=== PATIENT | female | born 1950 | race Caucasian/White ===

== ENCOUNTER 2021-01-15 11:25 | Outpatient (CLI) | payer MEDICARE, SELFPAY | END 2021-01-15 11:26 | disposition home or self-care (01) | PROVIDERS: Visit Provider Otolaryngology | DX: H93.13 Tinnitus, bilateral (principal); H91.93 Unspecified hearing loss, bilateral | CPT/HCPCS: 92557; 92567 ==

== ENCOUNTER 2021-05-27 17:46 | Outpatient (CLI) | payer MEDICARE, SELFPAY ==
--- NOTE | ~2021-05-27 | MM_ITS ---
EXAMINATION: MM screening sydni BI w [place] HISTORY: Screening mammogram TECHNIQUE: Craniocaudal and mediolateral oblique 3-D tomosynthesis images were obtained and synthetic 2-D images were generated. CAD analysis was submitted and interpreted. COMPARISON: No prior mammogram is available for comparison at this institution. BREAST PARENCHYMAL COMPOSITION: The breasts are heterogeneously dense, which may obscure small masses . FINDINGS: RIGHT BREAST: There is focal asymmetry in the posterior third of the upper outer quadrant of the [address]. In addition, there is an asymmetry in the middle/posterior third of inner breast 10 cm from the n ipple on the craniocaudal view. LEFT BREAST: An asymmetry is present in the middle third of inner breast 6 cm from the nipple on the craniocaudal view. IMPRESSION: 1. Bilateral breast findings as described above which may represent the patient's baseline however no comparison is currently available. 2. Comparison with prior mammograms is necessary. BI-RADS Category 0: Incomplete: Needs comparison with prior mammograms. Reviewed, dictated and finalized at location A. IMPRESSION: 1. Bilateral breast findings as described above which may represent the patient 's baseline however no comparison is currently available. 2. Comparison with prior mammograms is necessary. BI-RADS Category 0: Incomplete: Needs comparison with prior mammograms.
== END 2021-05-27 17:47 | disposition home or self-care (01) ==
DX: Z12.31 Encounter for screening mammogram for malignant neoplasm of breast (principal); R92.8 Other abnormal and inconclusive findings on diagnostic imaging of breast
CPT/HCPCS: 77063; 77067

== ENCOUNTER 2021-07-04 11:46 | Outpatient (CLI) | payer MEDICARE, SELFPAY ==
--- NOTE | ~2021-07-04 | MM_ITS ---
EXAMINATION: MM diagnostic sydni LT w [place] HISTORY: Left breast asymmetry on screening mammogram TECHNIQUE: Additional 3-D tomosynthesis images of the left breast were performed and synthetic 2-D im ages were generated. CAD analysis was submitted and interpreted. COMPARISON: 05/27/2021, 10/24/2014, 07/16/2011 BREAST PARENCHYMAL COMPOSITION: The breasts are heterogeneously dense, which may obscure small masses . FINDINGS: There is a return to baseline fibroglandular appearance with spot compression of the left b reast in the area questioned on screening mammogram. IMPRESSION: 1. No mammographic evidence of malignancy. 2. Recommend routine screening mammography in one year. BI-RADS Category 1: Negative Reviewed, dictated and finalized at location A.
== END 2021-07-04 11:47 | disposition home or self-care (01) ==
DX: R92.8 Other abnormal and inconclusive findings on diagnostic imaging of breast (principal)
CPT/HCPCS: 77061; 77065; G0279

== ENCOUNTER 2022-02-07 14:21 | Emergency (ER) | payer MEDICARE, SELFPAY ==
--- NOTE | ~2022-02-07 | XR_ITS ---
EXAMINATION: XR knee LT min 4V EXAM DATE: 02/07/2022 15:00 INDICATION: FALL onto hardwood floor this P.M.;pain medial Lt knee. TECHNIQUE: Left ankle frontal, lateral and oblique projections obtained and reviewed. There is no pr ior study for comparison. FINDINGS: The left ankle mortise appears intact. There is mild patellofemoral and medial tibial fem oral compartment primary osteoarthritis. Trace joint effusion. There are no acute fractures identifi ed. IMPRESSION: 1. No acute findings. 2. Mild osteoarthritis. 3. Trace joint effusion. Reviewed, dictated and finalized at location G.
--- NOTE | ~2022-02-07 | XR_ITS ---
EXAMINATION: XR ankle LT min 3V EXAM DATE: 02/07/2022 15:00 INDICATION: Fall onto hardwood floor this P.M.; lat Lt ankle pain. TECHNIQUE: Left ankle frontal, lateral and oblique projections obtained and reviewed. There is no pr ior study for comparison. FINDINGS: The left ankle mortise appears intact. Small irregularity to the tip of the medial malleol us, age indeterminate avulsion injury (3 reports pain is lateral, not medial). There is a left ankle joint effusion. Small calcaneal spur inferiorly. No radiopaque foreign bodies identified. IMPRESSION: Age-indeterminate tiny medial malleolar avulsion fracture. Joint effusion. Reviewed, dictated and finalized at location G. IMPRESSION: Age-indeterminate tiny medial malleolar avulsion fracture. Joint ef fusion.
[2022-02-07 14:27] VITALS: BP 121/85; PULSE 105; RESP 16; TEMP 37; O2SAT 98
--- NOTE | 2022-02-07 14:46 | ED.LOWEXIN ---
HPI - Extremity Injury (Lower) General Chief Complaint: Extremity Injury, Lower Stated Complaint: L KNEE/ANKLE INJURY Time Seen by Provider: 02/07/22 14:35 Source: patient, family, RN notes reviewed and old records reviewed Mode of arrival: ambulatory Limitations: no limitations History of Present Illness HPI Narrative: 72-year-old female who presents to [facility] accompanied with her with complaints of pain to her left lateral ankle, point tenderness to anterior medial left ankle, and her left medial knee after slipping and falling on new hardwood floors in their home about an hour prior to arrival. Patient states that she had tennis shoes on and she slipped and fell hitting the medial side of her left knee and both lateral and medial aspect of left ankle, no redness or bruising noted. Patient voices previous fracture of right ankle in 2018 concerned due to history of osteopenia and history of ulcer and can's take Ibuprofen. MD complaint: knee injury (left), ankle injury (left) and fall Onset (ago): hour(s) Injury: Left: knee (medial knee) and ankle (lateral aspect) Place: home Exacerbating factors: weight bearing Context: fall Related Data Home Medications Medication Instructions Recorded Confirmed alprazolam 0.25 mg tablet 0.25 mg PO DAILY 01/13/21 02/07/22 amitriptyline 75 mg tablet 75 mg PO QHS 01/13/21 02/07/22 atorvastatin 40 mg tablet 40 mg PO DAILY 01/13/21 02/07/22 cholecalciferol (vitamin D3) 50 50 mcg PO DAILY 01/13/21 02/07/22 mcg (2,000 unit) capsule fenofibrate micronized 134 mg 134 mg PO DAILY 01/13/21 02/07/22 capsule lisinopril 20 mg tablet 20 mg PO DAILY 01/13/21 02/07/22 omeprazole 20 mg capsule,delayed 20 mg PO DAILY 01/13/21 02/07/22 release ramelteon 8 mg tablet 8 mg PO QHS 01/13/21 02/07/22 venlafaxine 37.5 mg 37.5 mg PO DAILY 01/13/21 02/07/22 capsule,extended release 24 hr vitamins A,C,M-cvwd-qdecfm 14,320 1 cap PO BID 01/13/21 02/07/22 unit-226 mg-200 unit capsule Allergies Allergy/AdvReac Type Severity Reaction Status Date / Time No Known Allergies Allergy Verified 02/07/22 14:28 Review of Systems Review of Systems: CONSTITUTIONAL: Denies fever, chills, or sweats. EYES: Denies visual changes, redness, or discharge. ENT: Denies rhinorrhea, congestion, sore throat, or otalgia. CARDIOVASCULAR: Denies chest pain, palpitations, or edema. RESPIRATORY: Denies cough or dyspnea. GASTROINTESTINAL: Denies abdominal pain, nausea, vomiting, or diarrhea. GENITOURINARY: Denies dysuria or hematuria. SKIN: Denies rash or itching. MUSCULOSKELETAL: lower left back pain,positive for left medial knee joint pain and left lateral ankle joint pain and point tenderness to anterior medial left ankle or myalgia. NEUROLOGIC: Denies headache, numbness, or weakness. PSYCHIATRIC:positive for history of anxiety or depression. All systems reviewed & are unremarkable except as noted in HPI and below PMFSH Past Medical History Medical History (Updated 02/07/22 @ 18:24 by Tomeka Mendoza NP) Closed right ankle fracture Elevated cholesterol GERD (gastroesophageal reflux disease) Hypertension Osteopenia Pneumonia Ulcer Surgical History Surgical History (Updated 02/07/22 @ 18:21 by Tomeka Mendoza NP) H/O breast biopsy History of hysterectomy History of removal of both ovaries Family History Family History Father Hypertension Mother Diabetes mellitus Hypertension Heart disease Social History Social History (Updated 02/07/22 @ 18:24 by Tomeka Mendoza NP) Smoking status: Never smoker Alcohol intake: current Alcohol use details: social Substance use: never Living arrangements: with family Gender identity (if verbalized by the patient): Female Comments At time of signature, agree with nursing past medical, surgical, social and family history. There is no relevant family history pertinent to the presenti
== END 2022-02-07 15:32 | disposition home or self-care (01) ==
PROVIDERS: Emergency Provider Registered Nurse
DX: S82.52XA Displaced fracture of medial malleolus of left tibia, initial encounter for closed fracture (principal); M25.462 Effusion, left knee; M25.472 Effusion, left ankle; W01.0XXA Fall on same level from slipping, tripping and stumbling without subsequent striking against object, initial encounter; E78.00 Pure hypercholesterolemia, unspecified; K21.9 Gastro-esophageal reflux disease without esophagitis; I10 Essential (primary) hypertension; M85.80 Other specified disorders of bone density and structure, unspecified site
CPT/HCPCS: 73564; 73610; 99214; G0463

== ENCOUNTER 2022-07-17 12:33 | Emergency (ER) | payer MEDICARE, SELFPAY ==
[2022-07-17 12:39] VITALS: BP 100/77; PULSE 102; RESP 16; TEMP 36.6; O2SAT 98
--- NOTE | 2022-07-17 13:03 | ED.HA ---
HPI - Headache General Chief Complaint: Headache Stated Complaint: DIZZY/HEADACHE Time Seen by Provider: 07/17/22 13:03 Source: patient and RN notes reviewed Mode of arrival: ambulatory Limitations: no limitations History of Present Illness HPI Narrative: 72-year-old female presented for complaint of episode of headache and dizziness about 2 hours prior to arrival this morning. She endorses working outside, she bent over and when she stood up she felt dizzy with flashing floaters in her eyes, and became diaphoretic. She endorses the head pain at that time was 7 out of 10. She took her blood pressure at home, lowest 93/71. Since then the pain has reduced to 3 out of 10. She continues to feel mild nausea, dry mouth, and belching. Also feels weak and tired at this time. She takes daily lisinopril and statin for history of HTN, HLD. Currently denies chest pain, palpitations, shortness of breath, vomiting, numbness, tingling, weakness of upper extremities. Related Data Home Medications Medication Instructions Recorded Confirmed alprazolam 0.25 mg tablet 0.25 mg PO DAILY 01/13/21 02/07/22 amitriptyline 75 mg tablet 75 mg PO QHS 01/13/21 02/07/22 atorvastatin 40 mg tablet 40 mg PO DAILY 01/13/21 02/07/22 cholecalciferol (vitamin D3) 50 50 mcg PO DAILY 01/13/21 02/07/22 mcg (2,000 unit) capsule fenofibrate micronized 134 mg 134 mg PO DAILY 01/13/21 02/07/22 capsule lisinopril 20 mg tablet 20 mg PO DAILY 01/13/21 02/07/22 omeprazole 20 mg capsule,delayed 20 mg PO DAILY 01/13/21 02/07/22 release ramelteon 8 mg tablet 8 mg PO QHS 01/13/21 02/07/22 vitamins A,C,W-cxmd-nqiprp 14,320 1 cap PO BID 01/13/21 02/07/22 unit-226 mg-200 unit capsule (PreserVision AREDS) Allergies Allergy/AdvReac Type Severity Reaction Status Date / Time No Known Allergies Allergy Verified 02/07/22 14:28 Review of Systems Review of Systems: CONSTITUTIONAL: Denies body aches, fever, chills, or sweats. EYES: Reports visual changes, denies redness, or discharge. ENT: Denies rhinorrhea, congestion, sore throat, or otalgia. CARDIOVASCULAR: Denies chest pain, palpitations, or edema. RESPIRATORY: Denies cough or dyspnea. GASTROINTESTINAL: Denies abdominal pain, vomiting, or diarrhea. MUSCULOSKELETAL: Denies back pain, joint pain, or myalgia. NEUROLOGIC: Endorses headache, denies numbness, tingling, or weakness All systems reviewed & are unremarkable except as noted in HPI and below PMFSH Past Medical History Medical History Closed right ankle fracture Elevated cholesterol GERD (gastroesophageal reflux disease) Hypertension Osteopenia Pneumonia Ulcer Surgical History Surgical History H/O breast biopsy History of hysterectomy History of removal of both ovaries Family History Family History Father Hypertension Mother Diabetes mellitus Hypertension Heart disease Social History Social History Smoking status: Never smoker Alcohol intake: current Alcohol use details: social Substance use: never Gender identity (if verbalized by the patient): Female Comments At time of signature, I have reviewed and agree with nursing past medical, surgical, social and family history unless otherwise noted. Please see nursing chart for further information. There is no relevant family history pertinent to the presenting complaint Exam Narrative: GENERAL: Well-appearing HEAD: Normocephalic, atraumatic. EYES: PERRLA, EOMI. ENT: Mucous membranes pink and moist. No rhinorrhea. NECK: Normal AROM. Supple. No lymphadenopathy. CHEST: Clear to auscultation. HEART: Regular rate and rhythm. No murmur appreciated. Normal peripheral pulses. ABDOMEN: Soft, nontender, nondistended, normal active bowel sounds.
--- NOTE | 2022-07-17 13:22 | ECG_ITS ---
Measurements Intervals [place] Rate: 101 P: 42 FL: 210 QRS: -43 QRSD: 102 T: 20 QT: 361 QTc: 470 Interpretive Statements SINUS TACHYCARDIA WITH FIRST DEGREE AV BLOCK PATTERN CONSISTENT WITH PULMONARY DISEASE POOR R WAVE PROGRESSION, ANTERIOR LEADS BORDERLINE T WAVE ABNORMALITY- ANT/INF LEADS ABNORMAL ECG NO PREVIOUS ECG AVAILABLE FOR COMPARISON Electronically Signed On 07-24-2022 12:32:26 CDT by Edgar Lopez D.O.
== END 2022-07-17 13:49 | disposition short-term general hospital (02) ==
PROVIDERS: Emergency Provider Nurse Practitioner Family
DX: R42 Dizziness and giddiness (principal); E78.00 Pure hypercholesterolemia, unspecified; K21.9 Gastro-esophageal reflux disease without esophagitis; I10 Essential (primary) hypertension; M85.80 Other specified disorders of bone density and structure, unspecified site; Z90.722 Acquired absence of ovaries, bilateral
CPT/HCPCS: 93005; 99212; G0463

== ENCOUNTER 2022-12-11 11:31 | Emergency (ER) | payer MEDICARE, SELFPAY ==
[2022-12-11 11:44] VITALS: BP 97/73; PULSE 102
[2022-12-11 11:49] VITALS: BP 90/77; PULSE 102; RESP 16; TEMP 36.3; O2SAT 100
[2022-12-11 11:51] VITALS: BP 89/72; PULSE 102
[2022-12-11 11:52] VITALS: BP 86/57; PULSE 112; RESP 16; TEMP 36.3; O2SAT 100
--- NOTE | 2022-12-11 12:00 | ED.DIZZY ---
HPI - Dizziness General Chief Complaint: Dizziness Stated Complaint: low bp,dizzy Time Seen by Provider: 12/11/22 11:43 Source: patient and family () Mode of arrival: ambulatory Limitations: no limitations History of Present Illness HPI Narrative: Patient presents today complaining of dizziness and lightheadedness that began when she was standing in the bathroom this morning. She laid down in her bedroom, ate 2 small cookies to see if this would help with her symptoms. When her symptoms resolved approximately 10 minutes later she got up and her symptoms returned. She checked her blood pressure at and it ranged from 88-90 systolic to upper 60s diastolic. Subsequently any time she was standing she was dizzy and lightheaded. She did not have any syncopal episodes. She currently has a headache. Denies shortness of breath, chest pain, vision changes, abdominal pain, palpitations or racing heart, numbness or tingling in the extremities, weakness. Patient has hypertension for which he takes lisinopril. Her last dose was last night. States she is prediabetic for which she takes Mounjaro injections. She does not check her blood sugars at home as her doctor told her this was not necessary and she does not have a glucometer. She had a similar episode of dizziness in July and was seen at this Urgent [facility]. She was subsequently transferred to the emergency department and diagnosed with dehydration. Today she called her PCP's office and was told to come to urgent care for further evaluation. Related Data Home Medications Medication Instructions Recorded Confirmed alprazolam 0.25 mg tablet 0.25 mg PO DAILY 01/13/21 12/11/22 amitriptyline 75 mg tablet 75 mg PO QHS 01/13/21 12/11/22 atorvastatin 40 mg tablet 40 mg PO DAILY 01/13/21 12/11/22 cholecalciferol (vitamin D3) 50 50 mcg PO DAILY 01/13/21 12/11/22 mcg (2,000 unit) capsule fenofibrate micronized 134 mg 134 mg PO DAILY 01/13/21 12/11/22 capsule lisinopril 20 mg tablet 20 mg PO DAILY 01/13/21 12/11/22 omeprazole 20 mg capsule,delayed 20 mg PO DAILY 01/13/21 12/11/22 release vitamins A,C,M-jhpk-otosrt 14,320 1 cap PO BID 01/13/21 12/11/22 unit-226 mg-200 unit capsule (PreserVision AREDS) dicyclomine 20 mg tablet 10 mg PO QID 12/11/22 12/11/22 ibandronate 150 mg tablet 15 mg PO DAILY 12/11/22 12/11/22 naloxone 4 mg/actuation nasal spray 4 mg intranasal PRN PRN Drug 12/11/22 12/11/22 Intoxication Symptoms rosuvastatin 40 mg tablet 40 mg PO DAILY 12/11/22 12/11/22 tirzepatide 2.5 mg/0.5 mL 2.5 mg subcut WEEKLY 12/11/22 12/11/22 subcutaneous pen injector (Mounjaro) tirzepatide 5 mg/0.5 mL 5 mg subcut WEEKLY 12/11/22 12/11/22 subcutaneous pen injector (Mounjaro) Allergies Allergy/AdvReac Type Severity Reaction Status Date / Time No Known Allergies Allergy Verified 12/11/22 11:44 Review of Systems Review of Systems: CONSTITUTIONAL: Denies body aches, fever, chills, or sweats. EYES: Denies visual changes, redness, or discharge. ENT: Denies rhinorrhea, congestion, sore throat, or otalgia. CARDIOVASCULAR: Denies chest pain, palpitations, or edema. RESPIRATORY: Denies cough or dyspnea. GASTROINTESTINAL: Denies abdominal pain, nausea, vomiting, or diarrhea. GENITOURINARY: Denies dysuria or hematuria. SKIN: Denies rash, itching, or wounds. MUSCULOSKELETAL: Denies back pain, joint pain, or myalgia. NEUROLOGIC: Denies numbness, tingling, or weakness.+ dizziness, lightheadedness, headache PSYCH: Denies depression or anxiety. [facility] Past Medical History Medical History Closed right ankle fracture Elevated cholesterol GERD (gastroesophageal reflux disease) Hypertension Osteopenia Pneumonia Ulcer Surgical History Surgical History H/O breast biopsy History of hysterectomy History of removal of both ovaries Family History F
[2022-12-11 12:04] LABS: Glucose Point of Care 98 mg/dl (65-105)
--- NOTE | 2022-12-11 12:07 | ECG_ITS ---
Measurements Intervals [place] Rate: 95 P: [place]: 0 QRS: -49 QRSD: 107 T: 20 QT: 393 QTc: 494 Interpretive Statements SINUS RHYTHM BORDERLINE AV CONDUCTION DELAY BASELINE ARTIFACT- II, III, AVF, V1-V3 BORDERLINE ECG COMPARED TO ECG 07/17/2022 13:25:07 SINUS RHYTHM NOW PRESENT Electronically Signed On 12-11-2022 12:54:22 HEARING SPECIALIST by Edgar Lopez D.O.
== END 2022-12-11 12:30 | disposition short-term general hospital (02) ==
PROVIDERS: Emergency Provider Nurse Practitioner
DX: R42 Dizziness and giddiness (principal); I48.92 Unspecified atrial flutter; E78.00 Pure hypercholesterolemia, unspecified; K21.9 Gastro-esophageal reflux disease without esophagitis; I10 Essential (primary) hypertension; M85.80 Other specified disorders of bone density and structure, unspecified site; R73.03 Prediabetes
CPT/HCPCS: 82948; 93005; 99213; G0463

== ENCOUNTER 2022-12-11 13:00 | Emergency (ER) | payer MEDICARE, SELFPAY ==
[2022-12-11] VITALS (7 sets, daily range): BP systolic 91–128; BP diastolic 69–91; PULSE 86–106; RESP 15–20; TEMP 37; O2SAT 98
--- NOTE | ~2022-12-11 | CT_ITS ---
EXAMINATION: CT brain wo con INDICATION: Dizziness and headache COMPARISON: None TECHNIQUE: Standard unenhanced head CT. The dose-length product (DLP) was 605.33 mGy-cm. The mA was a djusted according to patient size. Iterative reconstruction technique was employed. FINDINGS: There is no acute intraparenchymal hemorrhage. No evidence of mass lesion. No evidence of a cute infarction. There is mild periventricular and subcortical hypodensity probably related to small vessel ischemic disease. There is mild prominence of the sulci and ventricles related to cerebral atr ophy. Intracranial calcified cerebral atherosclerosis is noted. There are no extra-axial collections. There is no mass effect or midline shift. The orbits and soft tissues are unremarkable. The visualiz ed sinuses and mastoid air cells are well aerated. IMPRESSION: 1. No acute intracranial abnormality. 2. Age related findings. Reviewed, dictated and finalized at location F. [employer] MACHINE SETTER
--- NOTE | ~2022-12-11 | XR_ITS ---
EXAMINATION: XR chest 1V portable DATE: 12/11/2022 14:06 INDICATION: Dizziness. TECHNIQUE: A single frontal view of the chest was obtained. COMPARISON: Chest 2 views 12/07/2017 FINDINGS: There is chronic mild elevation of right hemidiaphragm. No pneumonia, pleural effusion, or pneumothorax. The heart size is normal. IMPRESSION: 1. No acute cardiopulmonary disease. Reviewed, dictated and finalized at location A. AL RECRUITER
--- NOTE | 2022-12-11 13:04 | ECG_ITS ---
Measurements Intervals [place] Rate: 95 P: 43 SD: 199 QRS: -61 QRSD: 105 T: 39 QT: 359 QTc: 451 Interpretive Statements SINUS RHYTHM BORDERLINE AV CONDUCTION DELAY LEFT ANTERIOR FASCICULAR BLOCK BORDERLINE T WAVE ABNORMALITY- ANT/INF LEADS ABNORMAL ECG COMPARED TO ECG 12/11/2022 12:07:17 LEFT ANTERIOR FASCICULAR BLOCK NOW PRESENT Electronically Signed On 12-11-2022 13:39:02 RELOCATION DIRECTOR by Edgar Lopez D.O.
[2022-12-11 13:15] LABS: Basophils Percent Auto 0.4 % (0.2-1.2); Eosinophils Absolute Auto 0.1 K/mm3 (0-0.3); Eosinophils Percent Auto 1.6 % (0-4.4); Hematocrit 45.7 % (37.0-47.0); Hemoglobin 14.8 g/dL (12.0-15.0); Immature Granulocyte Absolute 0.02 K/mm3 (0.00-0.031); Immature Granulocyte Percent A 0.4 % (0-0.5); Lymphocytes Percent Auto 8.9 % (18.3-44.2); Mean Corpuscular HGB Conc 32.4 g/dl (32-36); Mean Corpuscular Hemoglobin 29.8 pg (26-34); Mean Platelet Volume 9.7 fl (7.4-10.4); Monocytes Absolute Auto 0.6 K/mm3 (0.1-0.6); Monocytes Percent Auto 9.8 % (2.6-8.5); Neutrophils Absolute Auto 4.4 K/mm3 (1.3-6.7); Neutrophils Percent Auto 78.9 % (45.5-73.1); Platelet Count Result 255 k/mm3 (150-375); Red Blood Count 4.97 M/mm3 (4.2-5.4); Red Cell Distribution Width 14.4 % (11.5-14.5); White Blood Count 5.6 K/mm3 (4.5-10.0)
[2022-12-11 13:25] LABS: Alanine Aminotransferase 26 U/L (6-35); Albumin Level 4.2 g/dL (3.5-5.1); Alkaline Phosphatase 44 U/L (38-126); Anion Gap 8 mmol/L (8-16); Aspartate Amino Transferase 34 U/L (14-36); Bilirubin,Total 0.6 mg/dL (0.2-1.3); Blood Urea Nitrogen 18 mg/dL (7-17); Calcium 8.9 mg/dL (8.4-10.2); Carbon Dioxide 25 mmol/L (22-30); Chloride 104 mmol/L (98-107); Estimated CRCL calculation 38 ml/min; Estimated Glomerular Filt Rate 55; Glucose 97 mg/dL (65-110); Sodium 137 mmol/L (137-145)
[2022-12-11 14:35] LABS: Troponin I < 0.012 ng/mL (0.000-0.034)
[2022-12-11] MEDS: MECLIZINE HCL 12.5 MG TABLET PO (15:21)
[2022-12-11] MEDS: SODIUM CHLORIDE 0.9% IV 1,000 ML 999 ML IV CONT (15:26)
[2022-12-11 15:40] LABS: Appearance Urine Clear (Clear); Bilirubin Urine Negative (Negative); Blood Urine Negative (Negative); Color Urine Yellow (Yellow); Glucose Urine UA Negative (Negative); Ketones Urine Negative (Negative); Leukocyte Esterase Ur Negative LEU/UL (Negative); Nitrate Urine Negative (Negative); Protein Urine Negative (Negative); Specific Grav Ur <= 1.005 (1.001-1.035); Urobilinogen Urine 0.2 mg/dL (<2.0)
[2022-12-11 15:47] LABS: Bacteria Urine 1+ /hpf; RBC Urine 0-2 /hpf (0-2); Squamous Epithelial Cell Urine Rare /hpf (Few); WBC Urine 0-3 /hpf
[2022-12-11 16:07] LABS: Add Urine Microscopic? NO
--- NOTE | 2022-12-11 16:21 | ED.GENADULT ---
HPI - General Adult General Chief complaint: Arrhythmia/Palpitations Stated complaint: sent from [facility], [place], headache Time Seen by Provider: 12/11/22 13:45 Source: RN notes reviewed History of Present Illness HPI narrative: Patient presents emergency department from home for dizziness. Patient states she woke up this morning and felt fine she states that she was then getting ready to go to a and was putting on make-up when she began to feel dizzy and lightheaded states at that time her had checked her blood pressure has been noted to be low she states that she laid down for a moment and felt better and got back up and had a second episode she then gone to an urgent care and was referred to the ER for further evaluation she currently denies any dizziness laying in bed she denies any vision changes, denies any numbness or tingling in extremities chest pain shortness of breath abdominal pain or any other symptoms Related Data Home Medications Medication Instructions Recorded Confirmed alprazolam 0.25 mg tablet 0.25 mg PO DAILY 01/13/21 12/11/22 amitriptyline 75 mg tablet 75 mg PO QHS 01/13/21 12/11/22 atorvastatin 40 mg tablet 40 mg PO DAILY 01/13/21 12/11/22 cholecalciferol (vitamin D3) 50 50 mcg PO DAILY 01/13/21 12/11/22 mcg (2,000 unit) capsule fenofibrate micronized 134 mg 134 mg PO DAILY 01/13/21 12/11/22 capsule lisinopril 20 mg tablet 20 mg PO DAILY 01/13/21 12/11/22 omeprazole 20 mg capsule,delayed 20 mg PO DAILY 01/13/21 12/11/22 release vitamins A,C,X-eguo-wbgcqy 14,320 1 cap PO BID 01/13/21 12/11/22 unit-226 mg-200 unit capsule (PreserVision AREDS) dicyclomine 20 mg tablet 10 mg PO QID 12/11/22 12/11/22 ibandronate 150 mg tablet 15 mg PO DAILY 12/11/22 12/11/22 naloxone 4 mg/actuation nasal spray 4 mg intranasal PRN PRN Drug 12/11/22 12/11/22 Intoxication Symptoms rosuvastatin 40 mg tablet 40 mg PO DAILY 12/11/22 12/11/22 tirzepatide 2.5 mg/0.5 mL 2.5 mg subcut WEEKLY 12/11/22 12/11/22 subcutaneous pen injector (Mounjaro) tirzepatide 5 mg/0.5 mL 5 mg subcut WEEKLY 12/11/22 12/11/22 subcutaneous pen injector (Mounjaro) Allergies Allergy/AdvReac Type Severity Reaction Status Date / Time No Known Allergies Allergy Verified 12/11/22 11:44 Review of Systems Review of Systems: Gen.: Denies fevers or chills Eyes: Denies eye pain or visual change ENT: Denies congestion Respiratory: Denies shortness of breath or cough CV: Denies chest pain or palpitations GI: Denies abdominal pain nausea, emesis or diarrhea Musculoskeletal: Denies back pain or muscle pain Neuro: Reports dizziness Skin: Denies rash Except as documented, all other systems reviewed and negative [facility] Past Medical History Medical History Closed right ankle fracture Elevated cholesterol GERD (gastroesophageal reflux disease) Hypertension Osteopenia Pneumonia Ulcer Surgical History Surgical History H/O breast biopsy History of hysterectomy History of removal of both ovaries Family History Family History Father Hypertension Mother Diabetes mellitus Hypertension Heart disease Social History Social History Smoking status: Never smoker Alcohol intake: current Alcohol use details: social Substance use: never Living arrangements: with family Gender identity (if verbalized by the patient): Female Exam Narrative: APPEARANCE: No acute distress, nontoxic, resting in bed HEENT: Normocephalic, atraumatic, OMM, TMs clear bilaterally EYES: PERRL, EOMI RESPIRATORY: No respiratory distress, clear to auscultation bilaterally with no rhonchi wheezing or rales CARDIOVASCULAR: RRR s murmur ABDOMINAL: Soft, nontender, nondistended MUSCULOSKELETAL: Moves
== END 2022-12-11 17:41 | disposition home or self-care (01) ==
PROVIDERS: Emergency Provider Emergency Medicine
DX: R42 Dizziness and giddiness (principal); I95.1 Orthostatic hypotension; K21.9 Gastro-esophageal reflux disease without esophagitis; I10 Essential (primary) hypertension; M85.80 Other specified disorders of bone density and structure, unspecified site; Z87.01 Personal history of pneumonia (recurrent); Z90.710 Acquired absence of both cervix and uterus; Z90.722 Acquired absence of ovaries, bilateral; I44.4 Left anterior fascicular block; R94.31 Abnormal electrocardiogram [ECG] [EKG]
CPT/HCPCS: 36415; 70450; 71045; 80053; 81003; 82948; 84484; 85025; 93005; 96361; 96374; 99284; A9270; J0131; J7030

== ENCOUNTER 2024-04-20 09:53 | Outpatient (CLI) | payer MEDICARE, SELFPAY | END 2024-04-20 09:54 | disposition home or self-care (01) | LOC: ANHAUDASC 09:54 | PROVIDERS: Visit Provider Otolaryngology | DX: H90.3 Sensorineural hearing loss, bilateral (principal) | CPT/HCPCS: 92557; 92567 ==

== ENCOUNTER 2024-05-19 17:59 | Emergency (ER) | payer MEDICARE, SELFPAY ==
--- NOTE | ~2024-05-19 | XR_ITS ---
XR finger 4th LT min 2V Ordering provider: JAYA Allred History: . HYPEREXTENSION OF 4TH DIGIT . Comparison: None. FINDINGS: BONES: Fracture at the base of the middle phalanx of the fourth finger anteriorly extending to the darrion int space. No other fractures seen. 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 SOFT TISSUES: Normal. Minimal soft tissue swelling over the area of the fracture. IMPRESSION: Fracture at the base of the middle phalanx of the fourth finger anteriorly extending to the joint spa ce Reviewed, dictated and finalized at location A.
[2024-05-19 18:10] VITALS: BP 154/93; PULSE 77; RESP 16; TEMP 36.2; O2SAT 100
--- NOTE | 2024-05-19 18:47 | ED.UPPEXIN ---
HPI - Extremity Injury (Upper) General Chief Complaint: Extremity Injury, Upper Stated Complaint: INJURED FINGER Time Seen by Provider: 05/19/24 18:39 Source: patient and RN notes reviewed Mode of arrival: ambulatory Limitations: no limitations History of Present Illness HPI narrative: Patient presents today complaining of left 4th finger injury. She was at target approximately 2 hours prior to exam and was getting a 5 lb weight off a shelf above her head when 2 of them fell off onto her finger that was hyperextended. Denies numbness or tingling. Currently rates her pain 7/10. No [id number]-[id number] treatment prior to arrival. Related Data Home Medications Medication Instructions Recorded Confirmed alprazolam 0.25 mg tablet 0.25 mg PO DAILY 01/13/21 04/12/24 atorvastatin 40 mg tablet 40 mg PO DAILY 01/13/21 04/12/24 cholecalciferol (vitamin D3) 50 50 mcg PO DAILY 01/13/21 04/12/24 mcg (2,000 unit) capsule fenofibrate micronized 134 mg 134 mg PO DAILY 01/13/21 04/12/24 capsule omeprazole 20 mg capsule,delayed 20 mg PO DAILY 01/13/21 04/12/24 release vitamins A,C,V-ksnb-mntpcp 4,296 1 cap PO BID 01/13/21 04/12/24 mcg-226 mg-90 mg capsule (PreserVision AREDS) dicyclomine 20 mg tablet 10 mg PO QID 12/11/22 04/12/24 ibandronate 150 mg tablet 15 mg PO DAILY 12/11/22 04/12/24 naloxone 4 mg/actuation nasal spray 4 mg intranasal PRN PRN Drug 12/11/22 04/12/24 Intoxication Symptoms rosuvastatin 40 mg tablet 40 mg PO DAILY 12/11/22 04/12/24 Allergies Allergy/AdvReac Type Severity Reaction Status Date / Time No Known Allergies Allergy Verified 04/12/24 11:12 Review of Systems Review of Systems: CONSTITUTIONAL: Denies body aches, fever, chills, or sweats. EYES: Denies visual changes, redness, or discharge. ENT: Denies rhinorrhea, congestion, sore throat, or otalgia. CARDIOVASCULAR: Denies chest pain, palpitations, or edema. RESPIRATORY: Denies cough or dyspnea. GASTROINTESTINAL: Denies abdominal pain, nausea, vomiting, or diarrhea. GENITOURINARY: Denies dysuria or hematuria. SKIN: Denies rash, itching, or wounds. MUSCULOSKELETAL: Denies back pain, or myalgia.+ left 4th finger injury NEUROLOGIC: Denies headache, numbness, tingling, or weakness. PSYCH: Denies depression or anxiety. [facility] Past Medical History Medical History Closed right ankle fracture Elevated cholesterol GERD (gastroesophageal reflux disease) Hypertension Osteopenia Pneumonia Ulcer Surgical History Surgical History H/O breast biopsy History of hysterectomy History of removal of both ovaries Family History Family History Father Hypertension Mother Diabetes mellitus Hypertension Heart disease Social History Social History Smoking status: Never smoker Alcohol intake: current Alcohol use details: social Substance use: never Lack of Transportation: No Lack of Food: Never True Current Housing: I Have Housing Concerned About Future Housing: No Difficulty Paying Gas/Electric Bills: No Difficulty Paying for Meds: No Currently Unemployed: No Education: Master's Degree or Higher Difficulty w/ Childcare or Family Care: No Living arrangements: with family Gender identity (if verbalized by the patient): Female Comments At time of signature, I have reviewed and agree with nursing past medical, surgical, social and family history unless otherwise noted. Please see nursing chart for further information. There is no relevant family history pertinent to the presenting complaint Exam Narrative: GENERAL: Well-appearing, well-nourished, and in no acute distress. HEAD: Normocephalic, atraumatic. EYES: EOMI. No redness or drainage. Conjunctivae normal. ENT: Mu
== END 2024-05-19 19:00 | disposition home or self-care (01) ==
PROVIDERS: Emergency Provider Nurse Practitioner
DX: S62.655A Nondisplaced fracture of middle phalanx of left ring finger, initial encounter for closed fracture (principal); W20.8XXA Other cause of strike by thrown, projected or falling object, initial encounter; E78.00 Pure hypercholesterolemia, unspecified; K21.9 Gastro-esophageal reflux disease without esophagitis; I10 Essential (primary) hypertension; M85.80 Other specified disorders of bone density and structure, unspecified site
CPT/HCPCS: 29130; 73140; 99214; G0463

== ENCOUNTER 2025-07-10 10:34 | Emergency (ER) | payer MEDICARE, SELFPAY ==
[2025-07-10] VITALS (13 sets, daily range): BP systolic 128–185; BP diastolic 78–97; PULSE 62–71; RESP 9–20; TEMP 36.4; O2SAT 93–98
--- NOTE | ~2025-07-10 | XR_ITS ---
EXAMINATION: XR chest 1V portable, 07/10/2025 13:40 CDT HISTORY: Dizziness COMPARISON: No comparisons available. Technique: Single view. Findings: The lungs are clear, no effusion. No pneumothorax. Heart is normal size. Mediastinal and hilar contours are within normal limits. Bony thorax no acute abnormality. Impression: No acute cardiopulmonary abnormality. Reviewed, dictated and finalized at location A. Impression: No acute cardiopulmonary abnormality.
--- NOTE | ~2025-07-10 | CT_ITS ---
EXAMINATION: CTA brain carotid DATE: 07/10/2025 14:06 CDT INDICATION: Headache, dizziness and lightheadedness TECHNIQUE: Computed tomographic angiography (CTA) of the head was performed without and with 100 mL Omnipaque-350 intravenous contrast. CTA of the neck was performed with intravenous contrast. The dose-length product was 1582.33 mGy-cm. Maximum intensity projection and volume rendered 3D-reconstructions were created by the technologist on a separate workstation. COMPARISON: None. FINDINGS: HEAD CTA: Brain parenchymal volume is normal for age. There are scattered mild periventricular and subcortical white matter changes, most likely related to small vessel ischemic disease (microangiopathy). No ventriculomegaly or midline shift. No acute infarction, hemorrhage, mass or mass effect. Paranasal sinuses and mastoids are pneumatized. No depressed skull fractures. There are codominant vertebral arteries. The anterior, middle and posterior cerebral arteries are symmetric without significant stenosis or occlusion. No aneurysm. NECK CTA: The origins of the common carotid and vertebral arteries are widely patent. No significant atherosclerotic plaque in the carotid arteries. No significant luminal narrowing. No dissection. Small 6 mm hypodense mass of the right thyroid lobe, likely benign. There are infiltrates of the right lower lobe at the superior segment which may represent atelectasis or scarring. IMPRESSION: 1: No acute intracranial abnormality. 2: Unremarkable CT angiogram of the head and neck. Reviewed, dictated and finalized at location O.
--- NOTE | 2025-07-10 10:57 | ECG_ITS ---
Test Date: 2025-07-10 11:01:09 Measurements Intervals Eldred Rate: 63 P: 39 NV: 220 QRS: -16 QRSD: 100 T: 30 QT: 441 QTc: 452 Interpretive Statements SINUS RHYTHM WITH FIRST DEGREE AV BLOCK BORDERLINE ECG No previous ECG available for comparison Electronically Signed On 07-10-2025 11:03:26 CDT by Edgar Lopez D.O.
--- OUTSIDE RECORDS SUMMARY | 2025-07-10 11:05 | XMS_ITS | Encounter Summary ---
Author Organization [facility] [employer] [facility] Address [address] [place] [address] Phone Care Team Providers Care Court Interpreter Name Role Phone Rocio Machuca MD Primary Care Provider Encounter Details Date Type Department Care Team (Latest Contact Info) Description 05/29/2025 Results Follow-Up [facility] [address] [place] [address] Medical Office [address] [place] [address] Rocio Machuca MD [address] [place] [address] [address] [place] [address] Lipid panel, Comprehensive metabolic panel Social History Tobacco Use Types Packs/Day Years Used Date Smoking Tobacco: Never Smokeless Tobacco: Never Alcohol Use Standard Drinks/Week Comments Yes 0 (1 standard drink = 0.6 oz pur e alcohol) occasional AUDIT-C Answer Date Recorded Q1: How often do you have a drink containing alc ohol? 2-4 times a month 05/02/2025 Q2: How many drinks containi ng alcohol do you have on a typical day when you are drinking? 1 or 2 05/02/2025 Q3: How often do you have si x or more drinks on one occasion? Never 05/02/2025 PHQ-2 Answer Date Recorded PHQ-2 Total Score (If total score is 3 or more points, staff should administer the PHQ-9) 0 05/29/2024 Exercise Vital Sign Answer Date Recorde d Days of Exercise per Week 0 days 2018 Minutes of Exercise per Session 0 min 07/26/2019 Personal Safety Answer Date Recorded Have you ever been in or are you currently in a harmful physical or emotional relationship or is someone making you feel afraid or unsafe? 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
--- OUTSIDE RECORDS SUMMARY | 2025-07-10 11:05 | XMS_ITS | Encounter Summary ---
Author Organization [facility] Healthcare Address [address] [place] [address] Care Team Providers Care Shift Mechanic Name Role Phone Rocio Machuca MD Primary Care Provider [phone] Encounter Details Date Type Department Care Team (Latest Contact Info) Description 06/01/2025 Results Follow-Up [facility] [id number] [place] [id number] [place] [id number] [address] Basic metabolic panel Social History Tobacco Use Types [...] points, staff should administer the PHQ-9) 0 06/04/2025 Exercise Vital Sign Answer Date Recorde d [...] on file 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 Answer Date of Assessment Author 2-4 times a month 06/04/2025 3:29 PM Joao Padgett Provider * Q2: How many drinks containing alcohol do you have on a typical day when you are drinking? Answer Date of Assessment Author 1 or 2 06/04/2025 3:29 PM STEPHANIET Joao Gloria Provider * Q3: How often do you have six or more drinks on one occasion? Answer Date of Assessment Author Never 06/04/2025 3:29 PM STEPHANIET Joao Gloria Provider documented as of this encounter Plan of Treatment Not on file documented as of this encounter Visit Diagnoses Not on filedocumented in this encounter Care Teams Shift Mechanic Relationship Specialty Start Date End Date Rocio Machuca MD PCP - General Internal Medicine 07/04/21 documented as of this encounter
--- OUTSIDE RECORDS SUMMARY | 2025-07-10 11:05 | XMS_ITS | Clinical Summary ---
Author Organization [facility] 1 Address [address] [place] [address] Care Team Providers Care Centrifugal Operator Name Role Phone Rocio Brady MD Primary Care Provider Allergies Active Allergy Reactions Criticality Noted Date Comments Nitrofurantoin Monohyd/M-Cryst Diarrhea Low 08/02 Gtelvzyz-Dkmhfucsij-Pptonnwyd Rash Medium 2009 Medications cholecalciferol (VITAMIN D-3) 2,000 unit tablet Take 2.5 tablets (5,000 Units total) by mouth 4 (four) times a week Active triamcinolone (KENALOG) 0.1 % cream 1 Active fluticasone propionate (FLONASE) 50 mcg/actuation nasal spray daily as needed 1 Active cetirizine (ZyrTEC) 10 mg tablet Take 1 tablet (10 mg total) by mouth daily Active lubiprostone (AMITIZA) 8 mcg capsule Take 1 capsule (8 mcg total) by mouth 2 (two) times a day with meals Take with meals 60 capsule 11 4 025 Active ALPRAZolam (XANAX) 0.25 mg tabletIndicatio ns:anxiety Take 1 tablet (0.25 mg total) by mouth daily as needed for anxiety 30 tablet 5 Active vit C/E/Zn/coppr/matty tein/zeaxan (PRESERVISION AREDS-2 ORAL) Take by mouth 4 (four) times a week Active FAMOTIDINE ORAL Take by mouth daily Active mirtazapine (REMERON) 7.5 mg tablet Take 1 tablet (7.5 mg total) by mouth nightly 90 tablet 4 5 Active rosuvastatin (CRESTOR) 40 mg tabletIndicatio ns:Dyslipidemia Take 1 tablet by mouth once daily 90 tablet 3 5 Active eszopiclone (LUNESTA) 3 mg tabletIndicatio ns:Insomnia, unspecified type Take 1 tablet by mouth nightly 90 tablet 5 Active eszopiclone (LUNESTA) 3 mg tabletIndicatio ns:Insomnia, unspecified type Take 1 tablet by mouth nightly 90 tablet 5 025 Discontinued rosuvastatin (CRESTOR) 40 mg tabletIndicatio ns:Dyslipidemia Take 1 tablet by mouth once daily 90 tablet 5 025 Discontinued Hospital, Clinic, or Other Facility Administered Medication Ordered Dose Route Frequency Start Date End Date Status perflutren protein-a (OPTISON) 3 mL in sodium chloride 0.9% 8 mL syringe 1 - 8 mL IV Once in imaging 06/12/2025 06/12/2025 Ended Active Problems Problem Noted Date Diagnosed Date Other hyperlipidemia 05/17/2024 Assessment & Plan (05/17/2024 3:21 PM CDT): On high-intensity statin plus fibrate. Last lipids well controlled. Will make no changes at this time. Would consider Discontinuation of fibrate if any side effects Obsessive-compulsive disorder 12/30/2023 TRE (obstructive sleep apnea) 12/02/2023 History of colon polyps 09/14/2023 Age related osteoporosis 02/12/2023 Overview (02/12/2023): Previous Boniva x 5 yrs for osteopenia, off 5 yrs. 01/05 Dexa with T score femur -2.6. Resumed Boniva 02/02 as previously tolerated Assessment & Plan (05/29/2024 12:57 PM CDT): Chronic, stable History of osteoporosis With femoral neck T-score-2.7, unchanged on Boniva Plan to stop Boniva and switch to IV bisphosphonate therapy with Reclast 5 mg IV once a year infusion Check labs in 2-3 weeks, before her Reclast infusion Discussed about mechanism of action, side effects and benefits of IV bisphosphonate therapy Recommend to take at least 3-4 servings of calcium intake in the diet Continue current vitamin-D supplementation Fall precautions Include resistance training exercises to build muscle strength/bone strength Follow up on one year Palpitations 01/30/2021 Assessment & Plan (01/30/2021 4:22 PM CDT): These may just be related to sinus tachycardia as she has had a lot of increased stress as well as poor sleep lately. However, I would like to place a 72h monitor to r/o afib, as this would increase her risk for strokes if present. Anxiety 06/18/2020 Moderate episode of recurrent major depressive d isorder 06/18/2020 Osteopenia 09/02/2018 Fear of travel with panic attacks 05/20/2018 Assessment & Plan (06/30/2018 5:23 PM CDT): Filled #30 NR valium for flights last appt as 1 y supply. Today filled #30 NR alprazolam 0.25 for panic/worry episodes as 1 y supply. Discussed not mixing them and my goal of getting her off regular benzos. Assessment & Plan (05/20/2018 2:19 PM CDT): She has been on this medication regimen for a while. We discussed the risk of using multiple sedating medications. I will fill 30 Valium 5 for travel associated panic attacks or motion sickness and may consider refills. I advised her to not also use alprazolam. If she needs additional medication, consider buspirone or hydroxyzine. I cannot find her on the [place] PDMP. Gastroesophageal reflux disease 08/04/2017 Irritable bowel syndrome 08/04/2017 Adjustment insomnia 08/04/2017 Assessment & Plan (12/21/2019 1:44 PM DRILL RIG OPERATOR HELPER): Trial gabapentin 100 qhs Will call in 1 month to assess response Could also consider uptitration of amitriptyline Assessment & Plan (06/30/2018 5:22 PM CDT): No improvmeent on 1 m of lexapro 10, increase to 20. Didn't find trazodone helpful in past. If lexapro 20 not helping, consider switch to remeron. I recommend not relying on lunesta or controlled meds senior living. Assessment & Plan (05/20/2018 2:17 PM CDT): Discussed again that benzodiazepines and Lunesta are not ideal long-term medications and the risk increases with age and increasing number of medications. She did not have improvement with trazodone. She is agreeable to trying Lexapro instead of Lunesta. We discussed side effects. Plan to follow up in 1 month Hypertension 03/08/2017 Overview (01/01/2023): - patient presents for follow up appointment with PCP on 12/17/2022 - dizziness on 12/11/2022 - stopped lisinopril 40 mg daily and mounjaro - I feel pretty much normal over the past week - averaged BP 110/83 at home - completed ECHO today - currently completing holter monitor - BP continues to go up and down throughout the day - 2 episodes of heart flutter- occurred when lying down and resting - one episode lasted more than 1 hour - UTD on eye exam - denies symptoms similar to like 12/11/2022, dizziness, lightheadedness, changes in vision, SOB, CP, swelling in legs Patient would like to restart mounjaro 2.5 mg weekly. Continue to hold lisinopril. Reviewed ASCVD. Encouraged heart healthy lifestyle. Assessment & Plan (12/12/2024 5:20 PM DRILL RIG OPERATOR HELPER): Off meds with satisfactory control based on 24 hour monitor. Some higher numbers on short list of home readings. Recommend to get verified for accuracy and to message if continue to get elevated readings >140/90 Assessment & Plan (05/17/2024 3:20 PM CDT): 24 hour blood pressure monitor with reassuring numbers off medication. At this point I would recommend observation without medication. Encourage regular physical activity and exercise to improve blood pressure control. Assessment & Plan (02/05/2022 1:33 PM CDT): Blood pressure is well controlled. Continue current regimen. Assessment & Plan (01/30/2021 4:23 PM CDT): Her home Bps have been running high lately. She self-increased her lisinopril to 40 w improvement, and today's BP is normal. We will formally increase her lisinopril to 40 daily and check a Bmp today. Assessment & Plan (12/21/2019 1:45 PM DRILL RIG OPERATOR HELPER): Bp at goal on home checks Continue current regimen. Assessment & Plan (12/20/2018 2:44 PM DRILL RIG OPERATOR HELPER): BP is slightly elevated today. We will increase lisinopril to 20 mg daily and check a BMP in 1 week Assessment & Plan (06/30/2018 5:21 PM CDT): Hypertension is controlled based on home BPs. . Continue current treatment regimen. Dietary sodium restriction. Regular aerobic exercise. Blood pressure will be reassessed at the next regular appointment. Assessment & Plan (05/20/2018 2:16 PM CDT): Hypertension is Normally controlled.. Continue current treatment regimen. Ambulatory blood pressure monitoring. Blood pressure will be reassessed at the next regular appointment. Dyslipidemia 04/11/2015 Assessment & Plan (12/12/2024 5:22 PM DRILL RIG OPERATOR HELPER): Recheck lipids today Assessment & Plan (02/05/2022 1:33 PM CDT): Continue high intensity statin. Assessment & Plan (01/30/2021 4:24 PM CDT): LDL remains above goal on atorvastatin. We will change the atorvastatin to rosuvastatin 40 mg daily. Assessment & Plan (12/21/2019 1:44 PM DRILL RIG OPERATOR HELPER): Well controlled on last lipid panel. Continue high intensity statin. Assessment & Plan (12/20/2018 2:45 PM DRILL RIG OPERATOR HELPER): Continue high intensity statin. Resolved Problems Problem Noted Date Diagnosed Date Resolved Date Acute right ankle pain 12/01/201812/02 Screening for breast cancer 09/02/2018 02/29/2024 Screening for osteoporosis 09/02/2018 0 02/12/2023 Encounter for annual health examination 09/02/2018 12/02/2023 Need for malaria prophylaxis 05/20/2018 12/02/2023 Assessment & Plan (05/20/2018 12:08 PM CDT): malarone rx Requires typhoid vaccination 05/20/2018 12/02/2023 Travel advice encounter 05/20/201811/15 Assessment & Plan (05/20/2018 2:21 PM CDT): Malarone rx and advice including taking 7 d after return. Typhoid oral vaccine given, advised Hep A/B combo vaccine, azithro in case of traveller's diarrhea. History of colonic polyps 08/06/2017 Cervical pain (neck) 10/08/2015 024 Encounters Date Type Department Care Team Description 06/13/2025 Results Follow-Up [facility] [address] [facility] Medical Office Building [address], [address] [place] [phone] Rocio Brady MD Transthoracic Echo (TTE) Complete W Doppler/CF, PTH, Calcium, ionized, Additional followed-up results: 5 06/12/2025 11:30 AM CDT Ancillary Procedure [facility] [address] [facility] [address] [place] [address] SOB (shortness of breath); Palpitations 06/08/2025 Telephone [facility] [id number] [place] [address] [address] [place] [phone] Hawa Mccann, KATARINA 06/08/2025 Telephone [facility] [address] [place] [phone] Marcio Dubon MD 06/05/2025 10:40 AM CDT Office Visit [facility] [address] [facility] [address], [address] [place] [address] Rocio Brady MD Medicare annual wellness visit, subsequent (Primary Dx); SOB (shortness of breath); Primary hypertension; Palpitations; Abnormal renal function; Serum calcium elevated; TRE (obstructive sleep apnea); Overweight (BMI 25.0-29.9); Age related osteoporosis, unspecified pathological fracture presence; Moderate episode of recurrent major depressive disorder (HCC) 06/04/[address] [place] [phone] Marcio Dubon MD 06/01/2025 Results Follow-Up [facility] of [address] [place] [phone] Marcio Dubon MD Basic metabolic panel 05/31/[address] [place] [phone] Keo Mcguire, RN 05/30/[address] [place] [phone] Keo Mcguire, RN 05/29/[address] [place] [address] Marcio Dubon MD 05/29/2025 Results Follow-Up [facility] [address] [facility] [address], [address] [place] [phone] Rocio Brady MD Lipid panel, Comprehensive metabolic panel 05/28/2025 11:15 AM CDT Office Visit [facility] [address] [place] [phone] Marcio Dubon MD Age-related osteoporosis without current pathological fracture (Primary Dx); KETAN (acute kidney injury) 05/28/2025 Orders Only [facility] at [address] [place] [address] Jacki Eagle RN 05/04/2025 Orders Only [facility] [address] [place] [address] Medical Office Building [address], [address] [place] [phone] Kamila Betancourt, VANDANA Decreased GFR (Primary Dx); Vitamin D deficiency, unspecified 05/04/2025 Results Follow-Up [address], [address] [place] [phone] Kamila Betancourt, VANDANA Thyroid Function [place], Comprehensive metabolic panel, CBC with auto differential, Additional followed-up results: 3 05/03/2025 8:00 AM CDT Ancillary Procedure [facility] [address] [facility] [address] [place] [phone] Shortness of breath 05/02/2025 4:00 PM CDT Lab [facility] [address] [place] [address] Shortness of breath 05/02/2025 3:00 PM CDT Office Visit [address], [address] [place] [phone] Kamila Betancourt, VANDANA Shortness of breath (Primary Dx) from Last 3 Months Immunizations Immunization Administration Dates Next Due Hep A / Hep B 08/06/2020,01/22/2020 Influenza, Quad, Adjuvantate d, Intramuscular 09/13/2023 Influenza, Quadrivalent, Hig h Dose, Preservative Free, Intrr 09/21/2022,08/06/2020 Influenza, Trivalent, High D ose, Split, Preservative Free, Intramuscular 12/29/2024,08/14/2019,07/31/2018 Pfizer SARS-CoV-2 Monovalent Vaccination (12+ Yrs) PURPLE 01/17/2021,12/27/2020 Pneumococcal Conjugate PCV 13 01/22/2020 Pneumococcal Polysaccharide PPV23 05/29/2021,11/1991 Tdap 05/24/2018,11/15/2015 Typhoid Inactivated 07/07/2018 ZOSTER Recombinant 08/29/2021,05/23/2021 Surgical History Surgery Date Site/Laterality Comments HYSTERECTOMY 11/15/1987 - 11/14/1988 BREAST BIOPSY 11/15/1985 - 11/14/1986 Right OOPHORECTOMY 11/15/2009 - 11/14/2010 BLEPHAROPLASTY Medical History Medical History Date Comments Pain in shoulder Pain in the fahad ulder - (Added by TW Conv) Personal history of other di seases of the respiratory system History of dyspnea - (Added by TW Conv) Personal history of other sp ecified conditions History of fatigue - (Added by TW Conv) IBS (irritable bowel syndrome) Hypercholesteremia History of pneumonia HTN (hypertension) Anxiety Family History Medical History Relation Name Comments Hypertension Father Family history of hypertension - (Added by TW Conv) Arthritis Mother Family history of arthritis - (Added by TW Conv) Coronary artery disease Mother Fami ly history of coronary artery disease - (Added by TW Conv) Diabetes Mother Family history of diabetes mellitus - (Added by TW Conv) Heart attack Mother Family history of heart attack - (Added by TW Conv) Heart disease Mother Family history of cardiac disorder - (Added by TW Conv) Hypertension Mother Family history of hypertension - (Added by TW Conv) Osteoporosis Mother Osteoporosis Sister 1 Osteoporosis Sister 2 Osteoporosis Sister 3 Relation Name Status Comments Father Mother Sister 1 Sister 2 Alive Sister 3 Alive Social History Tobacco Use Types Packs/Day Years Used Date Smoking Tobacco: Never Smokeless Tobacco: Never Tobacco Cessation:Counseling Given: Not Answered Alcohol Use Standard Drinks/Week Comments Yes 0 [...] on file Legal Sex Female 12:07 PM DRILL RIG OPERATOR HELPER Gender Identity Female 07/24/2019 12:50 PM CDT Sexual Orientation Straight 07/24/2019 12 :50 PM CDT Obstetrics History Para Term AB IAB SAB Ectopic Multiple Livin g Live Births 0 0 0 0 0 0 0 0 0 0 0 Last Filed Vital Signs Vital Sign Reading Time Taken Comments Blood Pressure 147/87 06/05/2025 10:58 AM CDT Pulse 88 06/05/2025 10:55 AM CDT Temperature 36.8 C (98.3 F) 06/05/2025 10:55 AM CDT Respiratory Rate 15 05/28/2025 11:17 AM CDT Oxygen Saturation 97% 06/05/2025 10:55 AM CDT Inhaled Oxygen Concentration - - Weight 65 kg (143 lb 3.2 oz) 06/05/2025 10:55 AM CDT Height 159.9 cm (5' 2.95) 06/05/2025 10:55 AM C DT Body Mass Index 25.4 06/05/2025 10:55 AM CDT Plan of Treatment Health Maintenance Due Date Last Done Comments Covid-19 Vaccine (2023- 5 season) 2024 11/18/2023, 09/21/2022, 05/07/2022, Additional history exists Influenza Vaccine (#1) 2025 , 09/13/2023, 09/21/2022, Additional history exists Breast Cancer Screening-Mammogram 03/19/2026 03/19/2025, 02/02/2024, 05/15/2016 Depression Screening 06/05/2026 06/05/2025, 05/29/2024, 12/02/2023, Additional history exists Fall Risk Assessment 06/05/2026 06/05/2025, 05/29/2024, 01/20/2024, Additional history exists Well Visit 65+ 06/05/2026 06/05/2025, 11/15, 10/22/2022, Additional history exists Colon Cancer Screening-Colonoscopy 01/19/2027 01/20/2024, 08/18/2017, 08/18/2017 Osteoporosis Screening-Bone Density Scan 02/09/2027 02/09/2025, 02/02/2024, 01/08/2021, Additional history exists DTaP/Tdap/Td Vaccine (3 - Td or Tdap) 05/24/2028 05/24/2018, 11/15/2015 Hepatitis B Screening Completed 08/06/2020, 020 Hepatitis C Screening Completed 11/26/2020 Pneumococcal vaccine 65+ Completed 021, 01/22/2020, 11/15/1991 Zoster Vaccine Completed 08/29/2021, 05/23/2021 Colon Cancer Screening-CT Colonography Discontinued 01/20/2024, 08/18/2017, 08/18/2017 Colon Cancer Screening-DNA Stool Discontinued 01/20/2024, 08/18/2017, 08/18/2017 Colon Cancer Screening-FIT Discontinued 01/19, 08/18/2017, 08/18/2017 Colon Cancer Screening-Sigmoidoscopy Discontinued 01/20/2024, 08/18/2017, 08/18/2017 Procedures Procedure Name Priority Date/Time Associated Diagnosis Comments MICROSCOPIC EXAMINATION Routine 06/27/2025 3:42 PM CDT URINALYSIS, COMPLETE W/REFLEX TO CULTURE Routine 06/27/2025 3:42 PM CDT PRO B-TYPE NATRIURETIC PEPTIDE Routine 06/27/2025 3:42 PM CDT SOB (shortness of breath) ALBUMIN CREATININE RATIO, URINE Routine 06/27/2025 3:42 PM CDT Abnormal renal function BASIC METABOLIC PANEL Routine 06/27/2025 3:42 PM CDT Abnormal renal function CALCIUM, IONIZED Routine 06/27/2025 3:42 PM CDT Serum calcium elevated PTH Routine 06/27/2025 3:42 PM CDT Serum calcium elevated TRANSTHORACIC ECHO (TTE) COMPLETE W DOPPLER/CF W CONTRAST Routine 06/12/2025 12:10 PM CDT SOB (shortness of breath) Palpitations COMPREHENSIVE METABOLIC PANEL Routine 05/28/2025 1:52 PM CDT Primary hypertension LIPID PANEL Routine 05/28/2025 1:52 PM CDT Primary hypertension Hyperlipidemia, unspecified hyperlipidemia type BASIC METABOLIC PANEL Routine 05/28/2025 1:51 PM CDT KETAN (acute kidney injury) EXTENDED/FPC HOLTER PATCH (8 DAYS UP TO 15 DAYS) Routine 05/03/2025 7:23 AM CDT Shortness of breath EGFR Routine 05/02/2025 4:11 PM CDT Shortness of breath DIFFERENTIAL AUTO Routine 05/02/2025 4:1 1 PM CDT Shortness of breath CBC WITH AUTO DIFFERENTIAL Routine 05/02/2025 4:11 PM CDT Shortness of breath COMPREHENSIVE METABOLIC PANEL Routine 05/02/2025 4:11 PM CDT Shortness of breath THYROID FUNCTION CASCADE Routine 05/02/2025 4:11 PM CDT Shortness of breath ECG 12-LEAD Routine 05/02/2025 3:39 PM CDT Shortness of breath SCREENING MAMMOGRAM BILATERAL W MORTEZA Schedule Routine, Read Routine (OP Routine) 03/19/2025 1:13 PM CDT Screening mammogram, encounter for DEXA TBS AXIAL SKELETON BONE DENSITY 1 OR MORE SITES Schedule Routine, Read Routine (OP Routine) 02/09/2025 9:37 AM CDT Age-related osteoporosis without current pathological fracture COLONOSCOPY 01/20/2024 3:38 PM DRILL RIG OPERATOR HELPER HEPATITIS C ANTIBODY Routine 11/26/2020 10:47 AM DRILL RIG OPERATOR HELPER Encounter for hepatitis C screening test for low risk patient from Last 3 Months or Most Recently Relevant to Health Maintenance Results * (ABNORMAL) URINALYSIS, COMPLETE W/REFLEX TO CULTURE (06/27/2025 3:42 PM CDT) Specific [place] 1.011 1.005 - 1.030 [facility] - 01 pH, ur 5.5 5.0 - 7.5 [facility] - 01 Color, ur Yellow Yellow [facility] - 01 Appearance, ur Clear Clear [facility] - 01 Leukocyte esterase, ur Negative Negative [facility] - 01 Protein, ur 1+(A) Negative/Tra ce [facility] - 01 Glucose, ur Negative Negative [facility] - 01 Ketones, ur Negative Negative [facility] - 01 Blood, ur Negative Negative [facility] - 01 Bilirubin, ur Negative Negative [facility] - 01 Urobilinogen, quant, ur 0.2 0.2 - 1.0 mg/dL [facility] - 01 Nitrites, ur Negative Negative [facility] - 01 Urinalysis, microscopic exam See below: [facility] - 01 Comment:Microscopic was mahsa cated and was performed. Urinalysis Reflex Comment [facility] - 01 Comment:This specimen will n ot reflex to a Urine Culture. 06/27/2025 3:42 PM CDT 06/27/2025 Narrative [facility] - 06/28/2025 7:09 AM CDT Performed at: [facility] [id number] Risk Investigator: Jaime Santoyo PhD, Phone: [phone] Rocio Brady MD LAB URINE ORDERABLES Final Result [facility] - 01 * Microscopic Examination (06/27/2025 3:42 PM CDT) WBC, ur 0-5 0 - 5 /hpf [facility] - 01 RBC, ur None seen 0 - 2 /hpf [facility] - 01 Epithelial cells, non-renal, ur 0-10 0 - 10 /hpf [facility] - 01 Casts None seen None seen /lpf [facility] - 01 Bacteria, ur None seen None seen/Few [facility] - 01 06/27/2025 3:42 PM CDT 06/27/2025 Narrative [facility] - 06/28/2025 7:09 AM CDT Performed at: [address] [id number] Risk Investigator: Jaime Santoyo PhD, Phone: [phone] Rocio Brady MD LAB BLOOD ORDERABLES Final Result [facility] 01 * Pro B-type natriuretic peptide (06/27/2025 3:42 PM CDT) Pathologist [facility] proBNP 48 0 - 301 pg/mL [facility] - Comment: The following cut-points have been suggested for the use of proBNP for the diagnostic evaluation of heart failure (HF) in patients with acute dyspnea: Modality Age Optimal Cut (years) Point Diagnosis (rule in HF) <50 450 pg/mL 50 - 75 900 pg/mL >75 1800 pg/mL Exclusion (rule out HF) Age independent 300 pg/mL Blood 06/27/2025 3:42 PM CDT 06/27/2025 Narrative [facility] - 06/28/2025 8:12 AM CDT Performed at: [address] [id number] Risk Investigator: Jaime Santoyo PhD, Phone: [phone] Rocio Brady MD LAB BLOOD ORDERABLES [facility] - * Calcium, ionized (06/27/2025 3:42 PM CDT) Calcium, Ionized, Serum 5.1 4.5 - 5.6 mg/dL [facility] - 01 Blood 06/27/2025 3:42 PM CDT 06/27/2025 Narrative [facility] - 06/28/2025 6:09 PM CDT Performed at: [address] [id number] Risk Investigator: Jaime Santoyo PhD, Phone: [phone] Rocio Brady MD LAB BLOOD ORDERABLES Final Result Performing Organization Address [facility] Co de Phone Number [facility] - * (ABNORMAL) Albumin Creatinine Ratio, Urine (06/27/2025 3:42 PM CDT) Creatinine ur 54.7 Not Estab. mg/dL [facility] - 01 Microalbumin, ur 69.3 Not Estab. ug/mL [facility] - 01 Microalbumin/cr eat ratio 127(H) 0 - 29 mg/g creat [facility] - 01 Comment: Normal: 0 - 29 Moderately increased: 30 - 300 Severely increased: >300 Urine 06/27/2025 3:42 PM CDT 06/27/2025 Narrative [facility] - 06/28/2025 1:10 PM CDT Performed at: [address] [id number] Risk Investigator: Jaime Santoyo PhD, Phone: [phone] us Rocio Brady MD LAB URINE ORDERABLES Final Result Performing Organization Address City/[facility]/ZIP Co de Phone Number [facility] - * PTH (06/27/2025 3:42 PM CDT) Pathologist [facility] PTH Intact 20 15 - 65 pg/mL [facility] - 01 Blood 06/27/2025 3:42 PM CDT 06/27/2025 Narrative [facility] - 06/28/2025 11:11 AM CDT Performed at: [address] [id number] Risk Investigator: Jaime Santoyo PhD, Phone: [phone] Rocio Brady MD LAB BLOOD ORDERABLES Final Result [facility] - * Basic metabolic panel (06/27/2025 3:42 PM CDT) [facility] Glucose 87 70 - 99 mg/dL [facility] - 01 BUN 16 8 - 27 mg/dL [facility] - 01 Creatinine, Serum 0.97 0.57 - 1.00 mg/dL [facility] - 01 eGFR 61 >59 mL/min/1.73 [facility] - 01 BUN/creat ratio 16 12 - 28 [facility] - 01 Sodium 140 134 - 144 mmol/L [facility] - 01 Potassium, sr 4.3 3.5 - 5.2 mmol/L [facility] - 01 Chloride 105 96 - 106 mmol/L [facility] - 01 CO2 22 20 - 29 mmol/L [facility] - 01 Calcium 9.8 8.7 - 10.3 mg/dL [facility] - 01 Blood 06/27/2025 3:42 PM CDT 06/27/2025 Narrative [facility] - 06/28/2025 7:09 AM CDT Performed at: [address] [id number] Risk Investigator: Jaime Santoyo PhD, Phone: [phone] us Rocio Brady MD LAB BLOOD ORDERABLES Final Result [facility] - * TRANSTHORACIC ECHO (TTE) COMPLETE W DOPPLER/CF W CONTRAST (06/12/2025 12:10 PM CDT) EF Mod BP 58 % CONS SCIMAGE Anatomical Region Laterality Modality Ultrasound 06/12/2025 11:4 2 AM CDT Narrative 06/12/2025 3:10 PM CDT [facility] [address], [address] [place] [address] Transthoracic Echocardiographic Report Patient Name: ANAT SCOTT M : 1950 (75y 5m) Gender: F Study Date: 06/12/2025 11:42:48 AM Ht(Inch): 62 Wt(Lb): 143.08 BSA: 1.68 Gospel Worker: TUNG Dennis Location: [facility] [address] Order Provider: ROCIO BRADY Heart Rate: 75 BMI: 26.17 BP: 163 / 91 Ref Provider: ROCIO BRADY PROCEDURES: Echocardiographic Report: Transthoracic complete echo with strain imaging and contrast, 2D, spectral and tissue Doppler, color flow Doppler, M-mode. Contrast: Contrast Enhancement was Employed: Due to suboptimal image quality with inadequate visualization of at least 2 of 16 LV wall segments in any view after initial imaging. Perflutren contrast was administered using the volume necessary to obtain adequate images and. 0.4 ml Optison Administered, (2.6 ml wasted). Technically difficult study due to: Poor acoustic windows. INDICATIONS: R06.02 Shortness of breath and R00.2 Palpitations. CONCLUSIONS: 1. Normal left ventricular size based on volume index. Normal LV wall thickness. Normal left ventricular systolic function. The Ejection Fraction (Myers's) is measured at 58 %. Grade I diastolic dysfunction (normal LA pressure). The average global longitudinal strain is borderline based on suboptimal images. 2. Normal right ventricular size. Mild right ventricular hypokinesis. 3. Mild pulmonic regurgitation. COMPARISONS: No significant change compared to prior study on: 01/11/23. ATTESTATION: I have personally reviewed and interpreted this study without fellow or resident. - DISCLAIMER: The study images and the final report will be retained in the patient chart by the Echo Laboratory for the legally required time period. This chart constitutes the legal record of any testing performed. FINDINGS: Study Quality: Adequate. Left Ventricle: Normal left ventricular size based on volume index. Normal LV wall thickness. Normal left ventricular systolic function. The Ejection Fraction (Myers's) is measured at 58 %. Grade I diastolic dysfunction (normal LA pressure). The average global longitudinal strain is borderline based on suboptimal images. The LV global strain is: -16.8 %. Right Ventricle: Normal right ventricular size. Mild right ventricular hypokinesis. Right ventricular strain inadequate for accurate interpretation. Left Atrium: The left atrium is normal in size. Right Atrium: The right atrium is normal in size. Mitral Valve: Normal mitral valve structure. No mitral regurgitation. No stenosis present. Aortic Valve: Normal trileaflet aortic valve. No aortic regurgitation. No aortic valve stenosis. Tricuspid Valve: Normal tricuspid valve structure. No tricuspid regurgitation. No tricuspid valve stenosis. Pulmonic Valve: Normal pulmonic valve structure. Mild pulmonic regurgitation. No pulmonic valve stenosis present. Pericardium: Normal pericardium without pericardial effusion. Aorta: Normal aortic root size when indexed. The ascending aorta is normal in size when indexed. IVC: The IVC was <2.1 cm and collapsibility >50%. (est. RA pressure 0-5 mmHg). The estimated RA pressure is 3 mmHg. PASP: Unable to determine PASP due to inadequate TR jet. Rhythm: Normal Sinus rhythm was seen during the study. MEASUREMENTS: 2D/MM Value Range Doppler Value Range LVIDd 2D 5.09 cm [ 3.80 - 5.20 ] AV VTI 23.2 cm LVIDs 2D 2.69 cm [ 2.20 - 3.50 ] LVOT VTI 17.8 cm IVSd 2D 1.07 cm [ 0.60 - 0.90 ] LVOT/AV VTI 0.77 - Dimensionless index (DVI) LVPWd 2D 1.00 cm [ 0.60 - 0.90 ] MV E Peak Ezio 0.4 m/s [ 0.6 - 1.3 ] LV Thickness Ratio 1.1 MV A Peak Ezio 0.7 m/s [ 1.0 - 1.2 ] RWT 0.39 MV E/A 0.7 ratio [ 0.8 - 1.5 ] EDV Mod BP 64.27 ml [ 46.00 - 106.00 ] MV Decel Time 210.74 msec [ 104.00 - 258.00 ] LV EDV Index 38.26 ml/m2 Med E` Ezio 5.2 cm/sec [ 8.0 - 25.0 ] ESV Mod BP 27.13 ml [ 14.00 - 42.00 ] Lat E` Ezio 5.9 cm/sec [ 10.0 - 25.0 ] EF Mod BP 58 % [ 54 - 74 ] Average E/E` 7.21 LV GLS -16.8 % [ -25.0 - -18.0 ] RV S` 7.58 cm/sec LA Volume BP 36.03 ml RA Pressure 3 mmHg LA Volume Index 21.45 ml/m2 [ 16.00 - 34.00 ] RV Base Dimen 2D 3.2 cm [ 2.5 - 4.2 ] TAPSE 1.40 cm [ 1.71 - 5.00 ] RA Volume 24.91 ml RA Volume Index 14.83 ml/m2 AoR Diam 2D 3.04 cm [ 2.70 - 3.70 ] Ao Root Index 1.81 cm/m2 [ 1.00 - 2.00 ] Asc Ao Diam 2D 2.84 cm Asc Ao Index 1.69 cm/m2 Electronically Signed By: Emili Mederos MD 06/12/2025 3:10:37 PM CDT Procedure Note De Emili Almazan MD - 06/12/2025 [facility] Cardiac Diagnostic Lab [address], [address] [place] [address] Transthoracic Echocardiographic Report Patient Name: ANAT SCOTT M : 1950 (75y 5m) Gender: F Study Date: 06/12/2025 11:42:48 AM Ht(Inch): 62 Wt(Lb): 143.08 BSA: 1.68 Gospel Worker: TUNG Dennis Location: [facility] Order Provider:ROCIO BRADY Heart Rate: 75 BMI: 26.17 BP: 163 / 91 Ref Provider: ROCIO BRADY PROCEDURES: Echocardiographic Report: Transthoracic complete echo with strain imagingand contrast, 2D, spectral and tissue Doppler, color flow Doppler, M-mode. Contrast: Contrast Enhancement was Employed: Due to suboptimal imagequality with inadequate visualization of at least 2 of 16 LV wall segments in any viewafter initial imaging. Perflutren contrast was administered using the volume necessaryto obtain adequate images and. 0.4 ml Optison Administered, (2.6 ml wasted). Technically difficult study due to: Poor acoustic windows. INDICATIONS: R06.02 Shortness of breath and R00.2 Palpitations. CONCLUSIONS: 1. Normal left ventricular size based on volume index. Normal LV wallthickness. Normal left ventricular systolic function. The Ejection Fraction (Myers's) ismeasured at 58 %. Grade I diastolic dysfunction (normal LA pressure). The average globallongitudinal strain is borderline based on suboptimal images. 2. Normal right ventricular size. Mild right ventricular hypokinesis. 3. Mild pulmonic regurgitation. COMPARISONS: No significant change compared to prior study on: 01/11/23. ATTESTATION: I have personally reviewed and interpreted this study without fellow orresident. - DISCLAIMER: The study images and the final report will be retained in the patientchart by the Echo Laboratory for the legally required time period. This chart constitutesthe legal record of any testing performed. FINDINGS: Study Quality: Adequate. Left Ventricle: Normal left ventricular size based on volume index. NormalLV wall thickness. Normal left ventricular systolic function. The EjectionFraction (Myers's) is measured at 58 %. Grade I diastolic dysfunction (normal LA pressure).The average global longitudinal strain is borderline based on suboptimal images. TheLV global strain is: -16.8 %. Right Ventricle: Normal right ventricular size. Mild right ventricularhypokinesis. Right ventricular strain inadequate for accurate interpretation. Left Atrium: The left atrium is normal in size. Right Atrium: The right atrium is normal in size. Mitral Valve: Normal mitral valve structure. No mitral regurgitation. Nostenosis present. Aortic Valve: Normal trileaflet aortic valve. No aortic regurgitation. Noaortic valve stenosis. Tricuspid Valve: Normal tricuspid valve structure. No tricuspidregurgitation. No tricuspid valve stenosis. Pulmonic Valve: Normal pulmonic valve structure. Mild pulmonicregurgitation. No pulmonic valve stenosis present. Pericardium: Normal pericardium without pericardial effusion. Aorta: Normal aortic root size when indexed. The ascending aorta is normalin size when indexed. IVC: The IVC was <2.1 cm and collapsibility >50%. (est. RA pressure 0-5mmHg). The estimated RA pressure is 3 mmHg. PASP: Unable to determine PASP due to inadequate TR jet. Rhythm: Normal Sinus rhythm was seen during the study. MEASUREMENTS: 2D/MM Value Range DopplerValue Range LVIDd 2D 5.09 cm [ 3.80 - 5.20 ] AV VTI23.2 cm LVIDs 2D 2.69 cm [ 2.20 - 3.50 ] LVOT VTI17.8 cm IVSd 2D 1.07 cm [ 0.60 - 0.90 ] LVOT/AV VTI0.77 - Dimensionless index (DVI) LVPWd 2D 1.00 cm [ 0.60 - 0.90 ] MV E Peak Vel0.4 m/s [ 0.6 - 1.3 ] LV Thickness Ratio 1.1 MV A Peak Vel0.7 m/s [ 1.0 - 1.2 ] RWT 0.39 MV E/A0.7 ratio [ 0.8 - 1.5 ] EDV Mod BP 64.27 ml [ 46.00 - 106.00 ] MV Decel Ybji803.74 msec [ 104.00 - 258.00 ] LV EDV Index 38.26 ml/m2 Med E` Vel5.2 cm/sec [ 8.0 - 25.0 ] ESV Mod BP 27.13 ml [ 14.00 - 42.00 ] Lat E` Vel5.9 cm/sec [ 10.0 - 25.0 ] EF Mod BP 58 % [ 54 - 74 ] Average E/E`7.21 LV GLS -16.8 % [ -25.0 - -18.0 ] RV S`7.58 cm/sec LA Volume BP 36.03 ml RA Pressure3 mmHg LA Volume Index 21.45 ml/m2 [ 16.00 - 34.00 ] RV Base Dimen 2D 3.2 cm [ 2.5 - 4.2 ] TAPSE 1.40 cm [ 1.71 - 5.00 ] RA Ckiyiy34.91 ml RA Volume Index14.83 ml/m2 AoR Diam 2D 3.04 cm [ 2.70 - 3.70 ] Ao Root Index 1.81 cm/m2 [ 1.00 - 2.00 ] Asc Ao Diam 2D2.84 cm Asc Ao Index1.69 cm/m2 Electronically Signed By: Emili Mederos MD 06/12/2025 3:10:37 PM CDT us Rocio Brady MD CV ECHO PROCEDURES Final Re sult * (ABNORMAL) Lipid panel (05/28/2025 1:52 PM CDT) Pathologist [facility] Cholesterol 159 100 - 199 mg/dL [facility] - 01 Triglycerides 223(H) 0 - 149 mg/dL [facility] - 01 HDL Cholesterol 59 >39 mg/dL [facility] - 01 VLDL 36 5 - 40 mg/dL [facility] - 01 LDL, calculated 64 0 - 99 mg/dL [facility] - 01 Blood 05/28/2025 1:52 PM CDT 05/28/2025 Narrative [facility] - 05/29/2025 8:11 AM CDT Performed at: 01 - [address] [id number] Risk Investigator: Jaime Santoyo PhD, Phone: [phone] Rocio Brady MD LAB BLOOD ORDERABLES Final Result [facility] - 01 * (ABNORMAL) Comprehensive metabolic panel (05/28/2025 1:52 PM CDT) Glucose 203(H) 70 - 99 mg/dL [facility] - 01 BUN 18 8 - 27 mg/dL [facility] - 01 Creatinine, Serum 1.29(H) 0.57 - 1.00 mg/dL [facility] - 01 eGFR 44(L) >59 mL/min/1.7 3 [facility] - 01 BUN/creat ratio 14 12 - 28 [facility] - 01 Sodium 141 134 - 144 mmol/L [facility] - 01 Potassium, sr 4.0 3.5 - 5.2 mmol/L [facility] - 01 Chloride 105 96 - 106 mmol/L [facility] - 01 CO2 20 20 - 29 mmol/L [facility] - 01 Calcium 10.6(H) 8.7 - 10.3 mg/dL [facility] - 01 Protein, sr 6.4 6.0 - 8.5 g/dL [facility] - 01 Albumin 4.3 3.8 - 4.8 g/dL [facility] - 01 Globulin, Total 2.1 1.5 - 4.5 g/dL [facility] - 01 Bilirubin, Total 0.4 0.0 - 1.2 mg/dL [facility] - 01 Alk phos 65 44 - 121 IU/L [facility] - 01 AST 19 0 - 40 IU/L [facility] - 01 ALT 18 0 - 32 IU/L [facility] - 01 Blood 05/28/2025 1:52 PM CDT 05/28/2025 Narrative [facility] - 05/29/2025 7:09 AM CDT Performed at: [address] [place] [id number] Risk Investigator: Jaime Santoyo PhD, Phone: [phone] Rocio Brady MD LAB BLOOD ORDERABLES Final Result Performing Organization Address [facility]/ZIP Co de Phone Number [facility] - * (ABNORMAL) Basic metabolic panel (05/28/2025 1:51 PM CDT) [facility] Glucose 188(H) 70 - 99 mg/dL [facility] - 01 BUN 18 8 - 27 mg/dL [facility] - 01 Creatinine, Serum 1.25(H) 0.57 - 1.00 mg/dL [facility] - 01 eGFR 45(L) >59 mL/min/1.7 3 [facility] - 01 BUN/creat ratio 14 12 - 28 [facility] - 01 Sodium 143 134 - 144 mmol/L [facility] - 01 Potassium, sr 4.0 3.5 - 5.2 mmol/L [facility] - 01 Chloride 105 96 - 106 mmol/L [facility] - 01 CO2 19(L) 20 - 29 mmol/L [facility] - 01 Calcium 10.3 8.7 - 10.3 mg/dL [facility] - 01 Blood 05/28/2025 1:51 PM CDT 05/28/2025 Narrative [facility] - 05/29/2025 12:10 PM CDT Performed at: [address] [place] [id number] Risk Investigator: Jaime Santoyo PhD, Phone: [phone] Marcio Hampton MD LAB BLOOD ORDERABLE S Final Result Performing Organization Address [facility]/ZIP Co de Phone Number [facility] - * Extended/Jail Holter Patch (8 days up to 15 days) (05/03/2025 7:23 AM CDT) Anatomical Region Laterality Modality Electrocardiogra phy 05/13/2025 9:44 PM CDT Narrative 05/28/2025 2:26 PM CDT HOLTER MONITOR Patient Name: ANAT SCOTT MCGARRAHAN : 1950 (75y 4m) Gender: F Study Date: 05/13/2025 09:44:31 PM Ht(Inch): Wt(Lb): BSA: Tech: Location: [facility] Order Provider: KAMILA BETANCOURT BMI: Ref Provider: KAMILA BETANCOURT PROCEDURES: Holter Report: EXTENDED/FPC HOLTER PATCH (>48 HOURS UP TO 7 DAYS) [[id number]]. Enrollment Period: 05/13/2025 21:44 - 05/20/2025 21:44. Monitor Number: [id number]. Location: [facility]. INDICATIONS: R06.02 Shortness of breath. FINDINGS: Holter Data: Min Rate: 52 BPM Min Rate Timestamp: 2025-05-16 06:27:06 Bradycardia (% of study): 12 Max Rate: 142 BPM Max Rate Timestamp: 2025-05-18 11:42:04 Tachycardia (% of study): 3 Mean Rate: 71 BPM AFib (% of study): 0 Singlets (PACs): 45 events Couplets (PACs): 1 events Total (PACs): 47 events Singlets (PVCs): 36 events Couplets (PVCs): 1 events Total (VE): 38 events Runs (VT): 0 events Total beats: [id number] SIGNIFICANT PAUSES: 0 >3 sec Protocol: Recording Duration (Ordered): [id number] Recording Duration (Actual): 824871.31 SUMMARY: *The predominant rhythm was Sinus. *The Maximum Heart Rate recorded was 142 bpm, 05/18 11:42:04, the Minimum Heart Rate recorded was 52 bpm, 05/16 06:27:06, and the Average Heart Rate was 71 bpm. *There were 38 VE beats with a burden of <1 %. *There were 47 SVE beats with a burden of <1 %. *There was 1 Patient Trigger.;. CONCLUSIONS: 1. I have reviewed the PDF and all the ECG strips. I agree with the interpretations as detailed in the report 2. The PDF can be found in the [facility] Patient chart. Please go to the Cardiology tab, click on the holter or event exam. Scroll to bottom where the ORDER LEVEL Documents reside and click the blue link to the pdf. 3. One Ventricular couplet seen. One patient event - walking/shortness of breath correlates with sinus tachycardia at 100bpm. Electronically Signed By: Esther Domingo [facility] 05/28/2025 1:25:44 PM CDT Electronically Signed By: Esther Domingo [facility] 05/28/2025 1:25:44 PM CDT Procedure Note Esther Domingo MD - 05/28/2025 HOLTER MONITOR Patient Name: ANAT SCOTT MCGARRAHAN : 1950 (75y 4m) Gender: F Study Date: 05/13/2025 09:44:31 PM Ht(Inch): Wt(Lb): BSA: Tech: Location: [facility] Order Provider: KAMILA BETANCOURT BMI: Ref Provider: KAMILA BETANCOURT PROCEDURES: Holter Report: EXTENDED/FPC HOLTER PATCH (>48 HOURS UP TO 7 DAYS)[[id number]]. Enrollment Period: 05/13/2025 21:44 - 05/20/2025 21:44. Monitor Number: [id number]. Location: [facility]. INDICATIONS: R06.02 Shortness of breath. FINDINGS: Holter Data: Min Rate: 52 BPM Min Rate Timestamp: 2025-05-16 06:27:06 Bradycardia (% of study): 12 Max Rate: 142 BPM Max Rate Timestamp: 2025-05-18 11:42:04 Tachycardia (% of study): 3 Mean Rate: 71 BPM AFib (% of study): 0 Singlets (PACs): 45 events Couplets (PACs): 1 events Total (PACs): 47 events Singlets (PVCs): 36 events Couplets (PVCs): 1 events Total (VE): 38 events Runs (VT): 0 events Total beats: [id number] SIGNIFICANT PAUSES: 0 >3 sec Protocol: Recording Duration (Ordered): [id number] Recording Duration (Actual): 734599.31 SUMMARY: *The predominant rhythm was Sinus. *The Maximum Heart Raterecorded was 142 bpm, 05/18 11:42:04, the Minimum Heart Rate recorded was 52 bpm, 05/206:27:06, and the Average Heart Rate was 71 bpm. *There were 38 VE beats with a burden of <1%. *There were 47 SVE beats with a burden of <1 %. *There was 1 Patient Trigger.;. CONCLUSIONS: 1. I have reviewed the PDF and all the ECG strips. I agree with theinterpretations as detailed in the report 2. The PDF can be found in the [facility] Patient chart. Please go to theCardiology tab, click on the holter or event exam. Scroll to bottom where the ORDER LEVELDocuments reside and click the blue link to the pdf. 3. One Ventricular couplet seen. One patient event - walking/shortness of breath correlates with sinustachycardia at 100bpm. Electronically Signed By: Esther Domingo [facility] 05/28/2025 1:25:44 PM CDT Electronically Signed By: Esther Domingo [facility] 05/28/2025 1:25:44 PM CDT Kamila Betancourt NP CV CARDIAC SERVICES PROCEDU RES Final Result * (ABNORMAL) eGFR (05/02/2025 4:11 PM CDT) Pathologist [facility] eGFR 45(L) >=60 mL/min/1. 73 m2 Comment: Interpretive Data Reference Interval Normal >/= 90 mL/min/1.73m2 Mildly decreased* 60 - 89 mL/min/1.73m2 Mildly to moderately decreased 45 - 59 mL/min/1.73m2 Moderately to severely decreased 30 - 44 mL/min/1.73m2 Severely decreased 15 - 29 mL/min/1.73m2 Kidney Failure < 15 mL/min/1.73m2 *Relative to young adult level Estimated glomerular filtration rate is determined by the 2020 CKD-EPI equation recommended by the National Kidney Foundation (A Unifying Approach to GFR Estimation: Recommendations of the NKF-ASK Task Force on Reassessing the Inclusion of Race in Diagnosing Kidney Disease, JASN 2020). The CKD-EPI equation should not be used for patients with unstable renal function and has not been validated in children and those over 70. Current interpretive data was last reviewed 2021. Blood 05/02/2025 4:11 PM CDT 05/02/2025 4:24 PM CDT us Kamila Betancourt NP LAB BLOOD ORDERABLES Final Result [facility] [id number] [facility]. Department [place] [address] * Differential, auto (05/02/2025 4:11 PM CDT) Pathologist [facility] Neutrophil abs 4.63 1.50 - 6.50 K/cumm Imm gran abs 0.01 0.00 - 0.10 K/cumm [facility] Lymphocyte abs 1.16 0.80 - 3.30 K/cumm [facility] Monocyte abs 0.51 0.20 - 0.80 K/cumm [facility] Eosinophil abs 0.13 0.00 - 0.50 K/cumm [facility] Basophil abs 0.03 0.00 - 0.10 K/cumm [facility] Neutrophil pct 71.5 % [facility] Comment: Interpretive Data Percent cell count reference ranges are not reported, since discordance with absolute values may lead to misinterpretation of CBC data. Current Interpretive Data was last revised on 2018. Imm gran pct 0.2 % D[facility]IO LYLES Comment: Interpretive Data Percent cell count reference ranges are not reported, since discordance with absolute values may lead to misinterpretation of CBC data. Current Interpretive Data was last revised on 2018. Lymphocyte pct 17.9 % [facility] Comment: Interpretive Data Percent cell count reference ranges are not reported, since discordance with absolute values may lead to misinterpretation of CBC data. Current Interpretive Data was last revised on 2018. Monocyte pct 7.9 % [facility]IO LYLES Comment: Interpretive Data Percent cell count reference ranges are not reported, since discordance with absolute values may lead to misinterpretation of CBC data. Current Interpretive Data was last revised on 2018. Eosinophil pct 2.0 % [facility]ARIO LYLES Comment: Interpretive Data Percent cell count reference ranges are not reported, since discordance with absolute values may lead to misinterpretation of CBC data. Current Interpretive Data was last revised on 2018. Basophil pct 0.5 % [facility]ARIO LYLES Comment: Interpretive Data Percent cell count reference ranges are not reported, since discordance with absolute values may lead to misinterpretation of CBC data. Current Interpretive Data was last revised on 2018. Blood 05/02/2025 4:11 PM CDT 05/02/2025 4:24 PM CDT Kamila Betancourt NP LAB BLOOD ORDERABLES Final Result [facility]IO [facility] [id number] [facility]. Department [place] [address] * Thyroid Function [place] (05/02/2025 4:11 PM CDT) TSH 3.35 0.30 - 4.20 mcIUnit/mL Blood 05/02/2025 4:11 PM CDT 05/02/2025 4:24 PM CDT Kamila Betancourt NP LAB BLOOD ORDERABLES Final Result Performing Organization Address [facility] Co de Phone Number [facility] [id number] [place] [facility] [place] [address] * (ABNORMAL) CBC with auto differential (05/02/2025 4:11 PM CDT) WBC 6.47 3.80 - 9.90 K/cumm Hgb 16.3(H) 11.9 - 15.5 g/dL [facility] Hct 49.4(H) 35.6 - 45.5 % [facility] Plt 218 150 - 400 K/cumm [facility] MPV 10.3 9.1 - 12.3 fL [facility] RBC 5.47(H) 3.90 - 5.20 M/cumm [facility] MCV 90.3 81.3 - 96.4 fL [facility] MCH 29.8 27.1 - 33.3 pg [facility] MCHC 33.0 32.3 - 35.7 g/dL [facility] RDW CV 12.9 11.1 - 14.9 % [facility] RDW SD 42.7 35.7 - 48.1 fL [facility] NRBC abs 0.00 0.00 - 0.01 K/cumm [facility] Blood 05/02/2025 4:11 PM CDT 05/02/2025 4:24 PM CDT Kamila Betancourt NP LAB BLOOD ORDERABLES Final Result Performing Organization Address [facility]/ZIP Co de Phone Number DARIO LYLES [id number] [facility] [employer] [place], [place] [id number] * (ABNORMAL) Comprehensive metabolic panel (05/02/2025 4:11 PM CDT) Sodium 144 135 - 145 mmol/L Potassium, pl 3.8 3.3 - 4.9 mmol/L [facility] Chloride 108 97 - 110 mmol/L [facility] CO2 22 22 - 32 mmol/L [facility] Anion gap 15 2 - 15 mmol/L [facility] BUN 16 6 - 25 mg/dL [facility] Creatinine 1.26(H) 0.60 - 1.10 mg/dL [facility] Glucose 101 70 - 199 mg/dL [facility] Comment: Interpretive Data Fasting glucose >/= 126 mg/dl is diagnostic for diabetes. Fasting is defined as no caloric intake for at least 8 hours. Fasting glucose between 100 mg/dl to 125 mg/dl is diagnostic of prediabetes. In a patient with classic symptoms of hyperglycemia or hyperglycemic crisis, a random glucose >/= 200 mg/dl is diagnostic for diabetes. In the absence of unequivocal hyperglycemia, results should be confirmed by repeat testing. The classification and Diagnosis of Diabetes Diabetes Care 2021; 46: S19-S40. Current interpretive data was last revised 2022. Calcium 10.6(H) 8.5 - 10.3 mg/dL [facility] Bilirubin, total 0.4 0.1 - 1.2 mg/dL [facility] Protein, pl 7.4 6.5 - 8.5 g/dL [facility] Albumin 4.6 3.5 - 5.0 g/dL [facility] Alk phos 66 40 - 130 Units/L [facility] ALT 24 7 - 45 Units/L [facility] AST 25 10 - 45 Units/L [facility] Comment:Hemolyzed; result ma y be falsely elevated. Blood 05/02/2025 4:11 PM CDT 05/02/2025 4:24 PM CDT us Kamila Betancourt NP LAB BLOOD ORDERABLES Final Result DARIO BIRD [id number] [facility]. Department [place] [employer] [place] [address] * ECG 12 lead (05/02/2025 3:39 PM CDT) us Kamila Betancourt NP ECG ORDERABLES Final Resul t * (ABNORMAL) Screening Mammogram Bilateral W Morteza (03/19/2025 1:13 PM CDT) Anatomical Region Laterality Modality Breast Bilateral Mammography Impressions 03/19/2025 1:49 PM CDT BI-RADS ATLAS category (overall): 0 - Incomplete: Needs Additional Imaging Evaluation 1. Indeterminate left breast finding as above. Further evaluation with diagnostic left mammography and possible diagnostic left breast ultrasound is recommended. 2. No mammographic evidence of malignancy in the right breast. Routine screening mammography of the right breast is recommended in 1 year. The patient has been or will be contacted. 1. Indeterminate left breast finding as above. Further evaluation with diagnostic left mammography and possible diagnostic left breast ultrasound is recommended. 2. No mammographic evidence of malignancy in the right breast. Routine screening mammography of the right breast is recommended in 1 year. The patient has been or will be contacted. Narrative 03/19/2025 1:49 PM CDT Screening Mammogram Bilateral W Morteza: 03/19/25 The study was acquired using full field digital technology and interpreted from soft copy. 2D digital mammographic views, as well as 3D digital tomosynthesis were performed in the CC and MLO projections. CLINICAL: Screening mammogram, encounter for. No relevant medical history has been documented for this patient. No known family history of breast cancer. COMPARISONS: 02/02/2024 Screening Mammogram Bilateral W Morteza 10/24/2014 Breast Imaging Screening Outside Reference 07/16/2011 Breast Imaging Screening Outside Reference BREAST TISSUE: The breasts are heterogeneously dense, which may obscure small masses. FINDINGS: There is a focal asymmetry in the subareolar left breast. No other suspicious masses, suspicious calcifications, or other suspicious findings are seen within either breast. There has been no suspicious change. us Self Screening Mammogram IMG MAMMO PROCEDURES Fi nal Result * Dexa TBS Axial Skeleton Bone Density 1 or more sites (02/09/2025 9:37 AM CDT) Anatomical Region Laterality Modality Wrist, Body N/A Radiographic Sophia ging Narrative 02/09/2025 11:07 AM CDT Patient Name: Anat Scott Date of : 1950 Date of scan: 02/09/2025 Bone mineral density was performed on a Hologic Discovery Densitometer. Based on machine cross-calibration and precision studies the least significant changes of this densitometer is 0.024 g/cm2 at the spine, 0.020 g/cm2 at the total proximal femur, and 0.014g/cm2 at the forearm. HISTORY: This is a 75 y.o. postmenopausal female with a history of low bone mass. She reports that she has never smoked. She has never used smokeless tobacco. Currently on treatment with vitamin D and zoledronic acid (Reclast) and previously treated with ibandronate (Boniva) and hormone replacement therapy. INDICATIONS: Menopause status, treatment monitoring, and history of low bone mass. FINDINGS: BONE MINERAL DENSITY OF THE LUMBAR SPINE Bone Mineral Density (BMD) of the lumbar spine was measured from L1-L4 and the average density was calculated to be 0.873 gm/cm2. This corresponds to a T-score (standard deviations from the mean of young adults) of -1.6. When compared to the previous study of 01/08/2021 there has been a 0.025 gm/cm (3.0%) increase in bone density that is considered significant. BONE MINERAL DENSITY OF THE PROXIMAL FEMUR Bone Mineral Density (BMD) of the left hip total was found to be 0.826 gm/cm2. This corresponds to a T-score standard deviations from the mean of young adults of -0.9. Femoral neck is 0.566 gm/cm2 with a T-score (standard deviations from the mean of young adults) of -2.5. When compared to the previous study of 01/08/2021 there has been no significant changes in bone density. SUMMARY: Bone mineral density shows evidence of osteoporosis and marked increase risk of fracture. There has been a significant increase in bone density since previous measurement. The lumbar spine Trabecular Bone Score is 1.265 which suggests partially degraded bone microarchitecture compared to the general population. Final decisions regarding diagnostic or therapeutic recommendations should include BMD, TBS, additional clinical risk factors as well the clinical context of the patient. Please see attached TBS results for further details. ADDITIONAL COMMENTS: Postmenopausal Women and Men Over 50: Diagnostic criteria: Osteoporosis: BMD at or below -2.5 T-score; Osteopenia (low bone mass): BMD between -1.0 and -2.5 T-score. If the patient has a history of a fragility fracture, a fracture that occurred with trauma equivalent to a fall from a standing position or less, then the diagnosis is osteoporosis regardless of bone density. The history and data sections of the bone mineral density scan were prepared by Lizette Lyons) EUNICE who is accredited by the International Society of Clinical Densitometry. The overall patient assessment and scan interpretation were performed by Rosalie Smith M.D. who is certified by the International Society of Clinical Densitometry. [id number] us Rosalie Smith MD IMG DXA PROCEDURES Final Resu lt * Colonoscopy (01/20/2024 3:38 PM DRILL RIG OPERATOR HELPER) Anatomical Region Laterality Modality Other Narrative Procedure Note Keira Romano MD - 01/20/2024 3:38 PM CST ENDOSCOPY LAB Patient Name: Anat Scott Procedure Date: 01/20/2024 3:38 PM Date of : 1950 Admit Type: Outpatient Age: 74 Gender: Female Attending MD: Keira Romano M.D. Room: [facility] ENDOSCOPY ROOM 02 Note Status: Finalized Procedure: Colonoscopy Indications: High risk colon cancer surveillance: Personalhistory of colonic polyps, family h/o colon cancer andcolon polyps Providers: Keira Romano M.D. Referring MD: Rocio Brady M.D. Medicines: Monitored Anesthesia Care Complications: No immediate complications. Estimated blood loss: Minimal. Estimated Blood Loss: Estimated blood loss was minimal. Procedure: Pre-Anesthesia Assessment: - Immediately prior to administration ofmedications, the patient was re-assessed for adequacy to receive sedatives. The benefits, risks and alternatives of theprocedure and sedation were discussed and informed consentwas obtained. All questions were answered. Please referto the signed informed consent document in the medical record. The scope was passed under direct vision.The [id number] was introduced through the anusand advanced to the cecum, identified by appendiceal orifice and ileocecal valve. The colonoscopy was performed without difficulty. The patient tolerated the procedure well. The quality of the bowel preparation was evaluated using the BBPS (BostonBowel Preparation Scale) with scores of: Right Colon = 3, Transverse Colon = 3 and Left Colon = 3 (entiremucosa seen well with no residual staining, smallfragments of stool or opaque liquid). The total BBPS score equals 9. Findings: The digital rectal exam was normal. A 5 mm polyp was found in the cecum. The polyp was sessile. The polyp was removed with a cold snare. Resection and retrieval werecomplete. Two sessile polyps were found in the ascending colon. The polyps were3 to 4 mm in size. These polyps were removed with a cold snare.Resection and retrieval were complete. A 4 mm polyp was found in the transverse colon. The polyp wassessile. The polyp was removed with a cold snare. Resection and retrieval were complete. Three sessile polyps were found in the descending colon. The polypswere 3 to 5 mm in size. These polyps were removed with a cold snare. Resection and retrieval were complete. Two sessile polyps were found in the sigmoid colon. The polyps were 2to 4 mm in size. These polyps were removed with a cold snare. Resectionand retrieval were complete. Internal hemorrhoids were found during retroflexion. The hemorrhoids were small. Impression: - One 5 mm polyp in the cecum, removed with a cold snare. Resected and retrieved. - Two 3 to 4 mm polyps in the ascending colon,removed with a cold snare. Resected and retrieved. - One 4 mm polyp in the transverse colon, removedwith a cold snare. Resected and retrieved. - Three 3 to 5 mm polyps in the descending colon, removed with a cold snare. Resected andretrieved. - Two 2 to 4 mm polyps in the sigmoid colon,removed with a cold snare. Resected and retrieved. - Internal hemorrhoids. Recommendation: - Follow-up biopsy results. Please call the officeif you do not receive results in 2 weeks. - Repeat colonoscopy in 3 years for surveillance. - Patient has a contact number available for emergencies. The signs and symptoms of potential delayed complications were discussed with thepatient. Return to normal activities tomorrow. Written discharge instructions were provided to thepatient. - Contact Information: During normal business hours - Please call [facility] Coordinator: [phone] After hours, evening, nights, weekends and holidays- Please call the hospital copier operator at and ask for the GI fellow superintendent compressor stations. Electronically by Dr Keira Romano Keira Romano M.D. 01/20/2024 4:09:27 PM Number of Addenda: 0 Note Initiated On: 01/20/2024 3:38 PM Keira Romano MD ENDOSCOPY PROCEDURES Final Result * Hepatitis C antibody (11/26/2020 10:47 AM DRILL RIG OPERATOR HELPER) Hep C Ab <0.1 0.0 - 0.9 s/co ratio [facility] - 01 Comment: Negative: < 0.8 Indeterminate: 0.8 - 0.9 Positive: > 0.9 The CDC recommends that a positive HCV antibody result be followed up with a HCV Nucleic Acid Amplification test (578419). Blood specimen (specimen) 11/26/2020 10:47 AM DRILL RIG OPERATOR HELPER 11/26/2020 Narrative [facility] - 11/27/2020 8:15 AM DRILL RIG OPERATOR HELPER Performed at: - [facility] [address] [id number] Risk Investigator: Jaime Santoyo PhD, Phone: [phone] Rocio Brady MD LAB MICROBIOLOGY - GENERAL ORDERABLES Final Result [facility] - 01 from Last 3 Months or Most Recently Relevant to Health Maintenance Insurance [address] [place] [id number] [employer] MED[employer]ARE [address] [place] [id number] [facility] MEDICARE [address] [place] [id number] AET MEDICARE [address] [place] [id number] Advance Directives For more information, please contact: [phone] * Full Code (Latest Code Status on File) Date Activated Date Inactivated Comments 01/20/2024 2:03 PM 01/20/2024 9:00 PM Care Teams Centrifugal Operator Relationship Specialty Start Date End Date Rocio Brady MD PCP - General Internal Medicine 07/04/21
--- OUTSIDE RECORDS SUMMARY | 2025-07-10 11:05 | XMS_ITS | Encounter Summary ---
Author Organization [facility] Address [address] [place] [address] Phone Care Team Providers Care Frame Pulley Mortising Machine Operator Name Role Phone Rocio Machuca MD Primary Care Provider Encounter Details Date Type Department Care Team (Latest Contact Info) Description 06/13/2025 Results Follow-Up [facility] Medicine Complete Care Clinic [address] [place] [address] Medical Office Building [address] [place] [address] Rocio Machuca MD [address] [place] [address] [address] [place] [address] Transthoracic Echo (TTE) Complete W Doppler/CF, PTH, Calcium, ionized, Additional followed-up results: 5 Social History Tobacco Use Types Packs/Day Years [...] on file Legal Sex Female 12:07 PM ENVIRONMENTAL COORDINATOR Gender Identity Female 07/24/2019 12:50 PM CDT Sexual Orientation Straight 07/24/2019 12 :50 PM CDT documented as of this encounter Plan of Treatment Scheduled Orders Name Type Priority Associated Diagnoses Orde r Schedule Albumin Creatinine Ratio, Urine Lab Routine Proteinuria, unspecified type Expected: 07/02/2025, Expires: 06/29/2026 documented as of this encounter Visit Diagnoses Diagnosis Proteinuria, unspecified type- Primary documented in this encounter Care Teams Frame Pulley Mortising Machine Operator Relationship Specialty Start Date End Date Rocio Machuca MD PCP - General Internal Medicine 07/04/21 documented as of this encounter
--- OUTSIDE RECORDS SUMMARY | 2025-07-10 11:05 | XMS_ITS | Encounter Summary ---
Author Organization [facility] Address [address] [place] [address] Phone Care Team Providers Care Monument Setter Name Role Phone Rocio Machuca MD Primary Care Provider Encounter Details Date Type Department Care Team (Latest Contact Info) Description 12/11/2022 Orders Only [facility] ED Scanning, Provider Social History Tobacco Use Types Packs/Day Years Used Date Smoking Tobacco: Never Smokeless Tobacco: Never Alcohol Use Standard Drinks/Week Comments Yes 0 (1 standard drink = 0.6 oz pur e alcohol) occasional AUDIT-C Answer Date Recorded Q1: How often do you have a drink containing alc ohol? 2-4 times a month 06/13/2021 Average Number of Drinks Not on file 021 Frequency of Binge Drinking Not on file 05/17 PHQ-2 Answer Date Recorded PHQ-2 Total Score 0 10/22/2022 Exercise Vital Sign Answer Date Recorde d Days of Exercise per Week 0 days 2018 Minutes of Exercise per Session 0 min 07/26/2019 Comments No Sex and Gender Information Value Date Recorded Sex Assigned at Not on file Legal Sex Female 12:07 PM CONCRETE JOURNEYMAN Gender Identity Female 07/24/2019 12:50 PM CDT Sexual Orientation Straight 07/24/2019 12 :50 PM CDT documented as of this encounter Plan of Treatment Not on file documented as of this encounter Procedures Procedure Name Priority Date/Time Associated Diagnosis Comments SCAN - RADIOLOGY/IMAGING 12/11/2022 SCAN - LABS 12/11/2022 documented in this encounter Results * SCAN - LABS (12/11/2022) us Provider Scanning Final Result * SCAN - RADIOLOGY/IMAGING (12/11/2022) Anatomical Region Laterality Modality Other us Provider Scanning Edited Result - Final documented in this encounter Visit Diagnoses Not on filedocumented in this encounter Care Teams Monument Setter Relationship Specialty Start Date End Date Rocio Machuca MD PCP - General Internal Medicine 07/04/21 documented as of this encounter
--- OUTSIDE RECORDS SUMMARY | 2025-07-10 11:05 | XMS_ITS | Clinical Summary ---
Author Organization [facility] Address [address] [place] [address] Phone Care Team Providers Care Showcase Maker Name Role Phone Charo Obregon MD, [facility] Primary Care Provid er Allergies Active Allergy Reactions Criticality Noted Date Comments Omzrddtl-Yjqwcczmxc-Xwfawbacf Rash Low 2009 Medications atorvastatin (LIPITOR) 40 mg Oral tablet Take 40 mg by mouth Daily LATE. Active fenofibrate micronized (ANTARA) 130 mg Oral Cap Take 130 mg by mouth daily. Active amitriptyline (ELAVIL) 25 mg Oral tablet Take 25 mg by mouth daily at bedtime. Active eszopiclone (LUNESTA) 2 mg Oral Tab Take 2 mg by mouth nightly as needed. Active ranitidine (ZANTAC) 150 mg Oral tablet Take 150 mg by mouth 2 times daily. Active polyethylene glycol (POLYETHLENE GLYCOL) 17 gram Oral PwPk Take 17 Gram by mouth 1 time daily as needed. 06/06/2010 Active ALPRAZolam (XANAX) 0.25 mg Oral tablet Take 0.25 mg by mouth 3 times daily as needed. 06/06/2010 Active tramadol (ULTRAM) 50 mg Oral tablet Take 2 Tabs by mouth every 6 hours as needed for Pain. 40 Tab 1 06/23/2010 Active HYDROcodone-jamel taminophen (LORTAB) 5-500 mg Oral tablet Take 1 Tab by mouth every 4 hours as needed for Pain. 40 Tab 0 06/23/2010 Active prochlorperazin e maleate (COMPAZINE) 10 mg Oral tablet Take 1 Tab by mouth every 6 hours as needed for Nausea. 10 Tab 1 06/23/2010 Active ibuprofen (MOTRIN) 600 mg Oral tablet Take 1 Tab by mouth every 6 hours as needed for Pain. 60 Tab 1 06/24/2010 Active Social History Tobacco Use Types Packs/Day Years Used Date Smoking Tobacco: Never Alcohol Use Standard Drinks/Week Comments Yes 0 (1 standard drink = 0.6 oz pur e alcohol) Comments Unknown Sex and Gender Information Value Date Recorded Sex Assigned at Not on file Legal Sex Female 3:15 AM SCOW CAPTAIN Gender Identity Not on file Sexual Orientation Not on file Last Filed Vital Signs Vital Sign Reading Time Taken Comments Blood Pressure 131/76 06/24/2010 7:00 AM CDT Pulse 76 06/24/2010 7:00 AM CDT Temperature 36.8 C (98.3 F) 06/24/2010 7:00 AM CDT Respiratory Rate 16 06/24/2010 7:00 AM CDT Oxygen Saturation 96% 06/24/2010 7:00 AM CDT Inhaled Oxygen Concentration - - Weight 61.7 kg (136 lb) 06/06/2010 1:18 PM CDT Height 160 cm (5' 3) 06/06/2010 1:18 PM CDT Body Mass Index 24.09 06/06/2010 1:18 PM CDT Plan of Treatment Health Maintenance Due Date Last Done Comments BREAST CANCER SCREENING 1991 COLORECTAL SCREENING 1996 Colorectal Cancer Screening 1996 FIT-DNA Q 3 years 1996 FIT/FOBT Q 1 year 1996 Flex Sig/CT Colonography Q 5 years 1996 ZOSTER VACCINE (2 of 2) 07/18/2021 05/23/2021 COVID-19 Vaccine ( - 2023- season) 07/16/202403/2021, 12/27/2020 INFLUENZA VACCINE (#1) 2025 , 08/14/2019, 07/31/2018 OSTEOPOROSIS SCREENING 01/08/2026 01/08/2021 RSV VACCINE (60+ or ) (1 - 1-dose 75+ series) 2026 DTAP/TDAP/TD VACCINES (3 - T d or Tdap) 05/24/2028 05/24/2018, 11/15/2015 PNEUMOCOCCAL VACCINE 50+ YEARS Completed 0 05/29/2021, 01/22/2020, 11/15/1991 Insurance [address] [employer] [employer] [address] [place] [address] [facility] BLUE ACCESS CHOICE Advance Directives For more information, please contact: [phone] * Full Code (Latest Code Status on File) Date Activated Date Inactivated Comments 06/23/2010 12:42 PM 06/24/2010 2:06 PM * Full Code Date Activated Date Inactivated Comments 06/23/2010 9:32 AM 06/23/2010 12:42 PM * Full Code Date Activated Date Inactivated Comments 06/23/2010 9:23 AM 06/23/2010 9:32 AM Care Teams Showcase Maker Relationship Specialty Start Date End Date Jorge Mancilla Jr., MD [address] [place] [address] [address] [place] [address] PCP - General Family Practice 06/03/10
--- OUTSIDE RECORDS SUMMARY | 2025-07-10 11:05 | XMS_ITS | Encounter Summary ---
Author Organization [facility] Address [address] [place] [address] Phone Care Team Providers Care Training Systems Officer Name Role Phone Rocio Machuca MD Primary Care Provider Rocio Machuca MD Primary Care Provider Encounter Details Date Type Department Care Team (Latest Contact Info) Description 05/27/2021 Orders Only [facility] MED ED Scanning, Provider Social History Tobacco Use Types Packs/Day Years Used Date Smoking Tobacco: Never Smokeless Tobacco: Never Alcohol Use Standard Drinks/Week Comments Yes 0 (1 standard drink = 0.6 oz pur e alcohol) occasional AUDIT-C Answer Date Recorded Q1: How often do you have a drink containing alc ohol? 2-4 times a month 05/29/2021 Average Number of Drinks Not on file 021 Frequency of Binge Drinking Not on file 05/15 PHQ-2 Answer Date Recorded PHQ-2 Total Score (If total score is 3 or more points, staff should administer the PHQ-9) 0 02/04/2021 Exercise Vital Sign Answer Date Recorde d Days of Exercise per Week 0 days 2018 Minutes of Exercise per Session 0 min 07/26/2019 Comments No Sex and Gender Information Value Date Recorded Sex Assigned at Not on file Legal Sex Female 12:07 PM AVP Gender Identity Female 07/24/2019 12:50 PM CDT Sexual Orientation Straight 07/24/2019 12 :50 PM CDT documented as of this encounter Functional Status documented as of this encounter Plan of Treatment Not on file documented as of this encounter Procedures Procedure Name Priority Date/Time Associated Diagnosis Comments SCAN - RADIOLOGY/IMAGING 05/27/2021 documented in this encounter Results * SCAN - RADIOLOGY/IMAGING (05/27/2021) Anatomical Region Laterality Modality Other us Provider Scanning Final Result documented in this encounter Visit Diagnoses Not on filedocumented in this encounter Care Teams Training Systems Officer Relationship Specialty Start Date End Date Rocio Machuca MD PCP - General Internal Medicine 08/02/19 07/03/21 Rocio Machuca MD PCP - General Internal Medicine 07/04/21 documented as of this encounter
--- OUTSIDE RECORDS SUMMARY | 2025-07-10 11:58 | XMS_ITS | Encounter Summary ---
Author Organization [facility] Address [address] [place] [address] Care Team Providers Care Rapier Insertion Loom Fixer Name Role Phone Rocio Machuca MD Primary Care Provider Encounter Details Date Type Department Care Team (Latest Contact Info) Description 06/01/2025 Results Follow-Up [facility] [id number] [place] [address] [place] [id number] [address] Basic metabolic panel Social History [...] on file Legal Sex Female 12:07 PM ADVERTISING INTERN Gender Identity Female 07/24/2019 12:50 PM CDT Sexual Orientation Straight 07/24/2019 12 :50 PM CDT documented as of this encounter Functional Status * AUDIT-C Score Answer Date of Assessment Author 2 06/04/2025 3:29 PM STEPHANIET Joao Gloria Provider * Q1: How often do you have a drink containing alcohol? Answer Date of Assessment Author 2-4 times a month 06/04/2025 3:29 PM oJao Padgett Provider * Q2: How many drinks [...] on filedocumented in this encounter Care Teams Rapier Insertion Loom Fixer Relationship Specialty Start Date End Date Rocio Machuca MD PCP - General Internal Medicine 07/04/21 documented as of this encounter
--- OUTSIDE RECORDS SUMMARY | 2025-07-10 11:58 | XMS_ITS | Encounter Summary ---
Author Organization [facility] Address [address] [place] [address] Phone Care Team Providers Care Lithographic Proofer Name Role Phone Rocio Machuca MD Primary [...] on file Legal Sex Female 12:07 PM WATER JET LOOM FIXER Gender Identity Female 07/24/2019 12:50 PM CDT [...] on filedocumented in this encounter Care Teams Lithographic Proofer Relationship Specialty Start Date End Date Rocio Machuca MD PCP - General Internal Medicine 08/02/19 07/03/21 Rocio Machuca MD PCP - General Internal Medicine 07/04/21 documented as of this encounter
--- OUTSIDE RECORDS SUMMARY | 2025-07-10 11:58 | XMS_ITS | Encounter Summary ---
Author Organization [facility] [employer] [employer] [facility] Address [address] [place] [address] Phone Care Team Providers Care Geek Squad Autotech Name Role Phone Rocio Machuca MD Primary Care Provider Encounter Details Date Type Department Care Team (Latest Contact Info) Description 06/13/2025 Results Follow-Up [facility] Medicine Complete Care Clinic [address] [place] [address] Medical Office [address], [address] [place] [address] Rocio Machuca MD [address] [place] [address] [address] [place] [address] Transthoracic Echo (TTE) Complete W [...] on file Legal Sex Female 12:07 PM MED DIR Gender Identity Female 07/24/2019 12:50 PM CDT [...] Primary documented in this encounter Care Teams Geek Squad [employer] Relationship Specialty Start Date End Date Rocio Machuca MD PCP - General Internal Medicine 07/04/21 documented as of this encounter
--- OUTSIDE RECORDS SUMMARY | 2025-07-10 11:59 | XMS_ITS | Clinical Summary ---
Author Organization [facility] 1 Address [address] [place] [address] Care Team Providers Care Riding Double Name Role Phone Rocio Brady MD Primary Care Provider Allergies Active Allergy Reactions Criticality Noted Date Comments Nitrofurantoin Monohyd/M-Cryst Diarrhea Low 08/02 Vpsvzrap-Hywapuumsy-Lapyqszbn Rash Medium 2009 Medications cholecalciferol (VITAMIN D-3) [...] 08/04/2017 Assessment & Plan (12/21/2019 1:44 PM BIOLOGIST): Trial gabapentin 100 qhs Will call in 1 month to assess response Could also consider uptitration of amitriptyline Assessment & Plan (06/30/2018 5:22 PM CDT): No improvmeent on 1 m of lexapro 10, increase to 20. Didn't find trazodone helpful in past. If lexapro 20 not helping, consider switch to remeron. I recommend not relying on lunesta or controlled meds prison. Assessment & Plan (05/20/2018 2:17 PM CDT): [...] lifestyle. Assessment & Plan (12/12/2024 5:20 PM BIOLOGIST): Off meds with satisfactory control based on [...] today. Assessment & Plan (12/21/2019 1:45 PM BIOLOGIST): Bp at goal on home checks Continue current regimen. Assessment & Plan (12/20/2018 2:44 PM BIOLOGIST): BP is slightly elevated today. We will [...] 04/11/2015 Assessment & Plan (12/12/2024 5:22 PM BIOLOGIST): Recheck lipids today Assessment & Plan (02/05/2022 1:33 PM CDT): Continue high intensity statin. Assessment & Plan (01/30/2021 4:24 PM CDT): LDL remains above goal on atorvastatin. We will change the atorvastatin to rosuvastatin 40 mg daily. Assessment & Plan (12/21/2019 1:44 PM BIOLOGIST): Well controlled on last lipid panel. Continue high intensity statin. Assessment & Plan (12/20/2018 2:45 PM BIOLOGIST): Continue high intensity statin. Resolved Problems Problem [...] Department Care Team Description 06/13/2025 Results Follow-Up [facility] [address] Medical Office [address], [address] [place] [phone] Rocio Brady MD Transthoracic Echo (TTE) Complete W Doppler/CF, PTH, Calcium, ionized, Additional followed-up results: 5 06/12/2025 11:30 AM CDT Ancillary Procedure [facility] [address] [facility] [address] [place] [address] SOB (shortness of breath); Palpitations 06/08/2025 Telephone [facility] [address] [place] [address] [address] [place] [phone] Hawa Mccann, KATARINA 06/08/2025 Telephone [facility] [address] [place] [phone] Marcio Dubon MD 06/05/2025 10:40 AM CDT Office Visit [facility] [address] [facility] [address], [address] [place] [address] Rocio Brady MD Medicare annual wellness visit, subsequent (Primary Dx); SOB (shortness of breath); Primary hypertension; Palpitations; Abnormal renal function; Serum calcium elevated; TRE (obstructive sleep apnea); Overweight (BMI 25.0-29.9); Age related osteoporosis, unspecified pathological fracture presence; Moderate episode of recurrent major depressive disorder (HCC) 06/04/[address] [place] [phone] Marcio Dubon MD 06/01/2025 Results Follow-Up [facility] Specialists of [address] [place] [phone] Marcio Dubon MD Basic metabolic panel 05/31/[address] [place] [phone] Keo Mcguire, RN 05/30/[address] [place] [phone] Keo Mcguire, RN 05/29/[address] [place] [address] Marcio Dubon MD 05/29/2025 Results Follow-Up [facility] [address] [facility] [address] [facility] [address], [address] [place] [address] Rocio Brady MD Lipid panel, Comprehensive metabolic panel 05/28/2025 11:15 AM CDT Office Visit [facility] Diabetes [facility] Endocrinology [address] [place] [phone] Marcio Dubon MD Age-related osteoporosis without current pathological fracture (Primary Dx); KETAN (acute kidney injury) 05/28/2025 Orders Only [facility] at [address] [place] [address] Jacki Eagle RN 05/04/2025 Orders Only [facility] [address] [place] [address] Medical Office Building [address], [address] [place] [phone] Kamila Betancourt, VANDANA Decreased GFR (Primary Dx); Vitamin D deficiency, unspecified 05/04/2025 Results Follow-Up [address], [address] [place] [phone] Kamila Betancourt, VANDANA Thyroid Function [place], Comprehensive metabolic panel, CBC with auto differential, Additional followed-up results: 3 05/03/2025 8:00 AM CDT Ancillary Procedure [facility] [address] [facility] [address] [place] [phone] Shortness of breath 05/02/2025 4:00 PM CDT Lab [facility] [address] [place] [address] Shortness of breath 05/02/2025 3:00 PM CDT Office Visit [address], [address] [place] [phone] Kamila Betancourt, VANDANA Shortness of breath (Primary [...] on file Legal Sex Female 12:07 PM BIOLOGIST Gender Identity Female 07/24/2019 12:50 PM CDT [...] 1:51 PM CDT KETAN (acute kidney injury) EXTENDED/USP HOLTER PATCH (8 DAYS UP TO 15 [...] current pathological fracture COLONOSCOPY 01/20/2024 3:38 PM BIOLOGIST HEPATITIS C ANTIBODY Routine 11/26/2020 10:47 AM BIOLOGIST Encounter for hepatitis C screening test for low risk patient from Last 3 Months or Most Recently Relevant to Health Maintenance Results * (ABNORMAL) URINALYSIS, COMPLETE W/REFLEX TO CULTURE (06/27/2025 3:42 PM CDT) Specific [place] 1.011 1.005 - 1.030 [facility] - 01 [...] - 06/28/2025 7:09 AM CDT Performed at: [facility] [id number] Sand Tester: Jaime Santoyo PhD, Phone: [phone] Rocio Brady MD LAB URINE ORDERABLES Final [...] - 06/28/2025 7:09 AM CDT Performed at: [address] [id number] Sand Tester: Jaime Santoyo PhD, Phone: [phone] Rocio Brady MD LAB BLOOD ORDERABLES Final Result [facility] - 01 * Pro B-type natriuretic peptide (06/27/2025 3:42 PM CDT) Pathologist [facility] proBNP 48 0 - 301 pg/mL [facility] [...] - 06/28/2025 8:12 AM CDT Performed at: [address] [id number] Sand Tester: Jaime Santoyo PhD, Phone: [phone] Rocio Brady MD LAB BLOOD ORDERABLES Final Result [facility] - * Calcium, ionized (06/27/2025 3:42 PM CDT) Calcium, Ionized, Serum 5.1 4.5 - 5.6 mg/dL [facility] - 01 Blood 06/27/2025 3:42 PM CDT 06/27/2025 Narrative [facility] - 06/28/2025 6:09 PM CDT Performed at: [address] [id number] Sand Tester: Jaime Santoyo PhD, Phone: [phone] Rocio Brady MD LAB BLOOD ORDERABLES Final Result Performing Organization Address [facility] Co de Phone Number [facility] - * (ABNORMAL) Albumin Creatinine [...] - 06/28/2025 1:10 PM CDT Performed at: [address] [id number] Sand Tester: Jaime Santoyo PhD, Phone: [phone] us Rocio Brady MD LAB URINE ORDERABLES Final Result Performing Organization Address City/[facility]/ZIP Co de Phone Number [facility] - * PTH (06/27/2025 3:42 PM CDT) Pathologist [facility] PTH Intact 20 15 - 65 pg/mL [facility] - 01 Blood 06/27/2025 3:42 PM CDT 06/27/2025 Narrative [facility] - 06/28/2025 11:11 AM CDT Performed at: [address] [id number] Sand Tester: Jaime Santoyo PhD, Phone: [phone] Rocio Brady MD LAB BLOOD ORDERABLES Final Result [facility] - * Basic metabolic panel (06/27/2025 3:42 PM CDT) [facility] Glucose 87 70 - 99 mg/dL [facility] [...] - 06/28/2025 7:09 AM CDT Performed at: [address] [id number] Sand Tester: Jaime Santoyo PhD, Phone: [phone] us Rocio Brady MD LAB BLOOD ORDERABLES Final Result [facility] - * TRANSTHORACIC ECHO (TTE) COMPLETE W DOPPLER/CF W CONTRAST (06/12/2025 12:10 PM CDT) EF Mod BP 58 % CONS SCIMAGE Anatomical Region Laterality Modality Ultrasound 06/12/2025 11:4 2 AM CDT Narrative 06/12/2025 3:10 PM CDT [facility] Cardiac Diagnostic Lab [address], [address] [place] [address] Transthoracic Echocardiographic Report Patient Name: ANAT SCOTT M : 1950 (75y 5m) Gender: F Study Date: 06/12/2025 11:42:48 AM Ht(Inch): 62 Wt(Lb): 143.08 BSA: 1.68 Deputy Sheriff K9 Handler: TUNG Dennis Location: [facility] Order Provider: ROCIO BRADY Heart Rate: 75 [...] Note De Emili Almazan MD - 06/12/2025 [facility] Cardiac Diagnostic Lab [address], [address] [place] [address] Transthoracic Echocardiographic Report Patient Name: ANAT SCOTT M : 1950 (75y 5m) Gender: F Study Date: 06/12/2025 11:42:48 AM Ht(Inch): 62 Wt(Lb): 143.08 BSA: 1.68 Deputy Sheriff K9 Handler: TUNG Dennis Location: [facility] Order Provider:ROCIO BRADY Heart Rate: 75 BMI: [...] [ 46.00 - 106.00 ] MV Decel Lcby960.74 msec [ 104.00 - 258.00 ] LV [...] cm [ 1.71 - 5.00 ] RA Ojzrvf44.91 ml RA Volume Index14.83 ml/m2 AoR Diam 2D 3.04 cm [ 2.70 - 3.70 ] Ao Root Index 1.81 cm/m2 [ 1.00 - 2.00 ] Asc Ao Diam 2D2.84 cm Asc Ao Index1.69 cm/m2 Electronically Signed By: Emili Mederos MD 06/12/2025 3:10:37 PM CDT us Rocio Brady MD CV ECHO PROCEDURES Final Re sult * (ABNORMAL) Lipid panel (05/28/2025 1:52 PM CDT) Pathologist [facility] Cholesterol 159 100 - 199 mg/dL [facility] - 01 Triglycerides 223(H) 0 - 149 mg/dL [facility] - 01 HDL Cholesterol 59 >39 mg/dL [facility] - 01 VLDL 36 5 - 40 mg/dL [facility] - 01 LDL, calculated 64 0 - 99 mg/dL [facility] - 01 Blood 05/28/2025 1:52 PM CDT 05/28/2025 Narrative [facility] - 05/29/2025 8:11 AM CDT Performed at: 01 - [address] [id number] Sand Tester: Jaime Santoyo PhD, Phone: [phone] Rocio Brayd MD LAB BLOOD ORDERABLES Final Result [facility] [...] - 05/29/2025 7:09 AM CDT Performed at: [address] [place] [id number] Sand Tester: Jaime Santoyo PhD, Phone: [phone] Rocio Brady MD LAB BLOOD ORDERABLES Final Result Performing Organization Address [facility]/ZIP Co de Phone Number [facility] - * (ABNORMAL) Basic metabolic panel (05/28/2025 1:51 PM CDT) [facility] Glucose 188(H) 70 - 99 mg/dL [facility] [...] - 05/29/2025 12:10 PM CDT Performed at: [address] [place] [id number] Sand Tester: Jaime Santoyo PhD, Phone: [phone] Marcio [place] MD LAB BLOOD ORDERABLE S Final Result Performing Organization Address [facility]/ZIP Co de Phone Number [facility] - * Extended/Shelter Holter Patch (8 days up to 15 days) (05/03/2025 7:23 AM CDT) Anatomical Region Laterality Modality Electrocardiogra phy 05/13/2025 9:44 PM CDT Narrative 05/28/2025 2:26 PM CDT HOLTER MONITOR Patient Name: ANAT SCOTT MCGARRAHAN : 1950 (75y 4m) Gender: F Study Date: 05/13/2025 09:44:31 PM Ht(Inch): Wt(Lb): BSA: Tech: Location: [facility] Order Provider: KAMILA BETANCOURT BMI: Ref Provider: KAMILA BETANCOURT PROCEDURES: Holter Report: EXTENDED/USP HOLTER PATCH (>48 HOURS UP TO 7 DAYS) [[id number]]. Enrollment Period: 05/13/2025 21:44 - 05/20/2025 21:44. Monitor Number: [id number]. Location: [facility]. INDICATIONS: R06.02 Shortness of breath. FINDINGS: Holter [...] events Runs (VT): 0 events Total beats: 652157 SIGNIFICANT PAUSES: 0 >3 sec Protocol: Recording Duration (Ordered): [id number] Recording Duration (Actual): 504423.31 SUMMARY: *The predominant rhythm was Sinus. *The [...] The PDF can be found in the [facility] Patient chart. Please go to the Cardiology tab, click on the holter or event exam. Scroll to bottom where the ORDER LEVEL Documents reside and click the blue link to the pdf. 3. One Ventricular couplet seen. One patient event - walking/shortness of breath correlates with sinus tachycardia at 100bpm. Electronically Signed By: Esther Domingo [facility] 05/28/2025 1:25:44 PM CDT Electronically Signed By: Esther Domingo [facility] 05/28/2025 1:25:44 PM CDT Procedure Note Esther Domingo MD - 05/28/2025 HOLTER MONITOR Patient Name: ANAT SCOTT MCGARRAHAN : 1950 (75y 4m) Gender: F Study Date: 05/13/2025 09:44:31 PM Ht(Inch): Wt(Lb): BSA: Tech: Location: [facility] Order Provider: KAMILA BETANCOURT BMI: Ref Provider: KAMILA BETANCOURT PROCEDURES: Holter Report: EXTENDED/USP HOLTER PATCH (>48 HOURS UP TO 7 DAYS)[[id number]]. Enrollment Period: 05/13/2025 21:44 - 05/20/2025 21:44. Monitor Number: [id number]. Location: [facility]. INDICATIONS: R06.02 Shortness of breath. FINDINGS: Holter [...] events Runs (VT): 0 events Total beats: 016601 SIGNIFICANT PAUSES: 0 >3 sec Protocol: Recording Duration (Ordered): [id number] Recording Duration (Actual): 809201.31 SUMMARY: *The predominant rhythm was Sinus. *The [...] The PDF can be found in the [facility] Patient chart. Please go to theCardiology tab, click on the holter or event exam. Scroll to bottom where the ORDER LEVELDocuments reside and click the blue link to the pdf. 3. One Ventricular couplet seen. One patient event - walking/shortness of breath correlates with sinustachycardia at 100bpm. Electronically Signed By: Esther Domingo [facility] 05/28/2025 1:25:44 PM CDT Electronically Signed By: Esther Domingo [facility] 05/28/2025 1:25:44 PM CDT Kamila Betancourt NP CV CARDIAC SERVICES PROCEDU RES Final Result * (ABNORMAL) eGFR (05/02/2025 4:11 PM CDT) Pathologist [facility] eGFR 45(L) >=60 mL/min/1. 73 m2 Comment: [...] NP LAB BLOOD ORDERABLES Final Result [facility] [address] [facility]. Department [place] [address] * Differential, auto (05/02/2025 4:11 PM CDT) Pathologist [facility] Neutrophil abs 4.63 1.50 - 6.50 K/cumm Imm gran abs 0.01 0.00 - 0.10 K/cumm [facility] Lymphocyte abs 1.16 0.80 - 3.30 K/cumm [facility] Monocyte abs 0.51 0.20 - 0.80 K/cumm [facility] Eosinophil abs 0.13 0.00 - 0.50 K/cumm [facility] Basophil abs 0.03 0.00 - 0.10 K/cumm [facility] Neutrophil pct 71.5 % [facility] Comment: Interpretive Data Percent cell count reference ranges are not reported, since discordance with absolute values may lead to misinterpretation of CBC data. Current Interpretive Data was last revised on 2018. Imm gran pct 0.2 % DARIO LLYES Comment: Interpretive Data Percent cell count reference [...] LAB BLOOD ORDERABLES Final Result DARIO WRIGHTWCH [address] [facility]. Department [place] [address] * Thyroid Function [place] (05/02/2025 4:11 PM CDT) TSH 3.35 0.30 - 4.20 mcIUnit/mL Blood 05/02/2025 4:11 PM CDT 05/02/2025 4:24 PM CDT Kamila Betancourt NP LAB BLOOD ORDERABLES Final Result Performing Organization Address [facility] Co de Phone Number DARIO LYLES [address] [facility] [place] [address] * (ABNORMAL) CBC with auto [...] RDW SD 42.7 35.7 - 48.1 fL [facility] NRBC abs 0.00 0.00 - 0.01 K/cumm [facility] Blood 05/02/2025 4:11 PM CDT 05/02/2025 4:24 PM CDT Kamila Betancourt NP LAB BLOOD ORDERABLES Final Result Performing Organization Address [facility]/ZIP Co de Phone Number DARIO LYLES [address] [facility] [place] [employer] [place], [place] [id number] * (ABNORMAL) Comprehensive metabolic panel (05/02/2025 4:11 [...] LAB BLOOD ORDERABLES Final Result DARIO BIRD [address] [facility]. [place] [address] * ECG 12 lead (05/02/2025 [...] by the International Society of Clinical Densitometry. [id number] us Rosalie Smith MD IMG DXA PROCEDURES Final Resu lt * Colonoscopy (01/20/2024 3:38 PM BIOLOGIST) Anatomical Region Laterality Modality Other Narrative Procedure Note Keira Romano MD - 01/20/2024 3:38 PM CST ENDOSCOPY LAB Patient Name: Anat Scott Procedure Date: 01/20/2024 3:38 PM Date of : 1950 Admit Type: Outpatient Age: 74 Gender: Female Attending MD: eKira Romnao M.D. Room: [facility] ENDOSCOPY ROOM 02 Note Status: Finalized Procedure: [...] The scope was passed under direct vision.The [id number] was introduced through the anusand advanced to [...] During normal business hours - Please call [facility] Coordinator: [phone] After hours, evening, nights, weekends and holidays- Please call the hospital milk bottling machine operator at and ask for the GI fellow vice president consulting services. Electronically by Dr Keira Romano Keira Romano M.D. 01/20/2024 4:09:27 PM Number of Addenda: 0 Note Initiated On: 01/20/2024 3:38 PM Keira Romano MD ENDOSCOPY PROCEDURES Final Result * Hepatitis C antibody (11/26/2020 10:47 AM BIOLOGIST) Hep C Ab <0.1 0.0 - 0.9 s/co ratio [facility] - 01 Comment: Negative: < 0.8 Indeterminate: 0.8 - 0.9 Positive: > 0.9 The CDC recommends that a positive HCV antibody result be followed up with a HCV Nucleic Acid Amplification test (165798). Blood specimen (specimen) 11/26/2020 10:47 AM BIOLOGIST 11/26/2020 Narrative [facility] - 11/27/2020 8:15 AM BIOLOGIST Performed at: - [facility] [address] [id number] Sand Tester: Jaime Santoyo PhD, Phone: [phone] Rocio Brady MD LAB MICROBIOLOGY - GENERAL ORDERABLES Final Result [facility] - 01 from Last 3 Months or Most Recently Relevant to Health Maintenance Insurance [address] [place] [id number] [employer] MEDICARE [address] [place] [id number] [facility] MEDICARE [address] [place] [id number] AET MEDICARE [address] [place] [id number] Advance Directives For more information, please contact: [phone] * Full Code (Latest Code Status on File) Date Activated Date Inactivated Comments 01/20/2024 2:03 PM 01/20/2024 9:00 PM Care Teams Riding Double Relationship Specialty Start Date End Date Rocio Brady MD PCP - General Internal Medicine 07/04/21
--- OUTSIDE RECORDS SUMMARY | 2025-07-10 11:59 | XMS_ITS | Encounter Summary ---
Author Organization [facility] Address [address] [place] [address] Phone Care Team Providers Care Tavern Operator Name Role Phone Rocio Machuca MD Primary Care Provider Encounter Details Date Type Department Care Team (Latest Contact Info) Description 05/29/2025 Results Follow-Up [facility] Medicine Complete [facility] [address] [place] [address] Medical Office [address], [address] [place] [address] Rocio Machuca MD [address] [place] [address] [address] [place] [address] Lipid panel, Comprehensive metabolic panel [...] on file Legal Sex Female 12:07 PM SYSTEMS DESIGNER Gender Identity Female 07/24/2019 12:50 PM CDT Sexual Orientation Straight 07/24/2019 12 :50 PM CDT documented as of this encounter Plan of Treatment Not on file documented as of this encounter Visit Diagnoses Not on filedocumented in this encounter Care Teams Tavern Operator Relationship Specialty Start Date End Date Rocio Machuca MD PCP - General Internal Medicine 07/04/21 documented as of this encounter
--- OUTSIDE RECORDS SUMMARY | 2025-07-10 11:59 | XMS_ITS | Encounter Summary ---
Author Organization [facility] Address [address] [place] [address] Phone Care Team Providers Care Visual Training Aide Name Role Phone Rocio Machuca MD Primary [...] on file Legal Sex Female 12:07 PM COMPLAINT ANALYST Gender Identity Female 07/24/2019 12:50 PM CDT [...] on filedocumented in this encounter Care Teams Visual Training Aide Relationship Specialty Start Date End Date Rocio Machuca MD PCP - General Internal Medicine 07/04/21 documented as of this encounter
--- OUTSIDE RECORDS SUMMARY | 2025-07-10 11:59 | XMS_ITS | Clinical Summary ---
Author Organization [facility] Address [address] [place] [address] Phone Care Team Providers Care Freight Rate Specialist Name Role Phone Charo Obregon MD, [facility] Primary Care Provid er Allergies Active Allergy Reactions Criticality Noted Date Comments Lsckjdan-Oipkajlqah-Jqktmvjcp Rash Low 2009 Medications atorvastatin (LIPITOR) 40 [...] on file Legal Sex Female 3:15 AM CARPENTER ROUGH Gender Identity Not on file Sexual Orientation [...] Completed 0 05/29/2021, 01/22/2020, 11/15/1991 Insurance [address] [place] [id number] [facility] BLUE ACCESS CHOICE Advance Directives For more information, please contact: [phone] * Full Code (Latest Code Status on File) Date Activated Date Inactivated Comments 06/23/2010 12:42 PM 06/24/2010 2:06 PM * Full Code Date Activated Date Inactivated Comments 06/23/2010 9:32 AM 06/23/2010 12:42 PM * Full Code Date Activated Date Inactivated Comments 06/23/2010 9:23 AM 06/23/2010 9:32 AM Care Teams Freight Rate Specialist Relationship Specialty Start Date End Date Jorge Mancilla Jr., MD [address] [place] [address] [address] [place] [address] PCP - General Family Practice 06/03/10
[2025-07-10 12:59] LABS: Add Urine Microscopic? YES; Appearance Urine Cloudy (Clear); Glucose Urine UA Negative (Negative); Leukocyte Esterase Ur Negative LEU/UL (Negative); Nitrate Urine Negative (Negative); Non Pathogenic Casts 0-2; Specific Grav Ur 1.009 (1.001-1.035)
[2025-07-10 13:02] LABS: Hematocrit 44.6 % (37.0-47.0); Hemoglobin 14.8 g/dL (12.0-15.0); Immature Granulocyte Percent A 0.2 % (0-0.5); Lymphocytes Absolute Auto 0.63 K/mm3 (0.9-3.2); Mean Corpuscular HGB Conc 33.2 g/dl (32-36); Mean Corpuscular Hemoglobin 29.8 pg (26-34); Mean Corpuscular Volume 89.9 fl (80-100); Nucleated Red Blood Cells Absolute Auto 0.000 K/mm3 (0.0-0.012); Nucleated Red Blood Cells Perc 0.0 % (0.0-0.2); Platelet Count Result 194 k/mm3 (150-375); Red Blood Count 4.96 M/mm3 (4.2-5.4); White Blood Count 5.1 K/mm3 (4.5-10.0)
--- NOTE | 2025-07-10 13:04 | ED.GENADULT ---
HPI - General Adult General Chief complaint: Dizziness Stated complaint: dizzy Time Seen by Provider: 07/10/25 11:46 History of Present Illness HPI narrative: This is a 75-year-old female presenting for dizziness. Patient said that she woke up matting 9:00 a.m. this morning and when she sat up she felt very dizzy/lightheaded as if she might pass out. Patient then had an episode nausea vomiting and diarrhea. Last known normal was 12:30 a.m. last night. She felt well all day yesterday. Patient does have a posterior headache which is not typical for her. She knows her blood pressures at home were around 160/100. She took 10mg lisinopril and 2 aspirin. Patient does not have any loss of consciousness, double vision, dysarthria dysphagia weakness to any extremity. Symptoms completely resolved in between episodes. They are triggered by going from lying to standing. Related Data Home Medications ?Medication ?Instructions ?Recorded ?Confirmed ?Last Taken ?Type alprazolam 0.25 mg tablet 0.25 mg PO DAILY 01/13/21 04/17/25 Unknown History cholecalciferol (vitamin D3) 50 50 mcg PO DAILY 01/13/21 04/17/25 Unknown History mcg (2,000 unit) capsule dicyclomine 20 mg tablet 10 mg PO QID 12/11/22 04/17/25 Unknown History rosuvastatin 40 mg tablet 40 mg PO DAILY 12/11/22 04/17/25 Unknown History cetirizine 10 mg tablet 10 mg PO DAILY PRN 05/26/24 04/17/25 Unknown History eszopiclone 3 mg tablet mg PO QHS 05/26/24 04/17/25 Unknown History famotidine 10 mg tablet 10 mg PO DAILY 05/26/24 04/17/25 Unknown History lubiprostone 8 mcg capsule 8 mcg PO DAILY 05/26/24 04/17/25 Unknown History mirtazapine 15 mg tablet 15 mg PO DAILY 05/26/24 04/17/25 Unknown History Allergies Allergy/AdvReac Type Severity Reaction Status Date / Time bacitracin (From Neosporin Allergy Mild Rash Verified 07/10/25 10:40 ([id number])) neomycin (From Neosporin Allergy Mild Rash Verified 07/10/25 10:40 ([id number])) polymyxin B (From Neosporin Allergy Mild Rash Verified 07/10/25 10:40 ([id number])) [facility] Past Medical History Medical History Ulcer Pneumonia Closed right ankle fracture Osteopenia GERD (gastroesophageal reflux disease) Elevated cholesterol Hypertension Surgical History Surgical History History of removal of both ovaries H/O breast biopsy History of hysterectomy Family History Family History Father Hypertension Mother Diabetes mellitus Hypertension Heart disease Social History Social History Smoking status: Never smoker Second hand tobacco smoke exposure: Yes Alcohol intake: current Alcohol use details: social Substance use: never Substance use type: does not use Do You Feel Safe in your Home?: Yes Lack of Transportation: No Lack of Food: Never True Current Housing: I Have Housing Concerned About Future Housing: No Difficulty Paying Gas/Electric Bills: No Difficulty Paying for Meds: No Currently Unemployed: No Education: Master's Degree or Higher Difficulty w/ Childcare or Family Care: No Living arrangements: with family Occupation/Education: retired Additional occupation/education comments: [employer] Gender identity (if verbalized by the patient): Female Exam Narrative: APPEARANCE: No apparent distress. Head: atraumatic. EYES: EOMI, NOSE: Atraumatic NECK: Trachea midline RESPIRATORY: No increased rate of breathing clear to auscultation CARDIOVASCULAR: RRR, soft nontender ABDOMINAL: Non-distended MUSCULOSKELETAl: No obvious deformities NEURO: Alert. Cranial nerves 2-12 grossly intact. Sensation light touch, motor function cerebellar function intact for 4 extremities. Gait exam was normal. SKIN:: Warm, dry. Normal color PSYCHIATRIC: Normal affect Course Vital Signs Vital signs: Vital Signs Temperature 97.6 F 07/10/25 10:37 Pulse Rate 70 07/10/25 10:37 Respiratory Rate 16 07/10/25 10:37 Blood Pressure 185/97 H 07/10/25 10:37 Pulse Oximetry 98 07/10/25 10:37 Oxygen Delivery Room Air 07/10/25 10:37 Temperature 97.6 F 07/10/25 10:37 Pulse Rate 70 07/10/25 15:21 Respiratory Rate 20 07/10/25 15:21 Blood Pressure 128/92 H 07/10/25 15:21 Pulse Oximetry 98 07/10/25 15:21 Oxygen Delivery Room Air 07/10/25 10:37 Medical Decision Making MDM Narrative Medical decision making narrative: -Course: 75-year-old female presenting with lightheadedness when going from laying to standing after having an episode of nausea vomiting and diarrhea. Patient also has a posterior headache which is not normal for her. CTA was ordered to evaluate for stroke/dissection/intracranial hemorrhage and was negative. Patient has a normal neurologic exam and then NIH is 0. Posterior stroke considered but unlikely. Patient received IV fluids with significant improvement in her symptoms. She was able to walk around the ED unassisted with a steady gait. Results were discussed with the patient length and she is comfortable going home. She did request some meclizine for dizziness. I explained to her that if this is dehydration the meclizine would not be particularly useful but she said that she would like to have it chest in case. This was provided. Patient discharged with return precautions and primary care follow-up. -DDX includes but is not limited to: Dehydration, gastroenteritis, viral syndrome, posterior circulation stroke, dissection Vital Signs Vital Signs: Vital Signs Temperature 97.6 F 07/10/25 10:37 Pulse Rate 70 07/10/25 10:37 Respiratory Rate 16 07/10/25 10:37 Blood Pressure 185/97 H 07/10/25 10:37 Pulse Oximetry 98 07/10/25 10:37 Oxygen Delivery Room Air 07/10/25 10:37 Temperature 97.6 F 07/10/25 10:37 Pulse Rate 70 07/10/25 15:21 Respiratory Rate 20 07/10/25 15:21 Blood Pressure 128/92 H 07/10/25 15:21 Pulse Oximetry 98 07/10/25 15:21 Oxygen Delivery Room Air 07/10/25 10:37 Lab Data 07/10/25 12:57 07/10/25 12:57 Labs: Lab Results 07/10/25 07/10/25 07/10/25 Range/Units 12:48 12:56 12:57 WBC 5.1 (4.5-10.0) K/mm3 RBC 4.96 (4.2-5.4) M/mm3 Hgb 14.8 (12.0-15.0) g/dL Hct 44.6 (37.0-47.0) % MCV 89.9 (80-100) fl MCH 29.8 (26-34) pg MCHC 33.2 (32-36) g/dl RDW 13.4 (11.5-14.5) % Plt Count 194 (150-375) k/mm3 MPV 9.5 (7.4-10.4) fl Immature Gran % (Auto) 0.2 (0-0.5) % Neut % (Auto) 80.6 H (45.5-73.1) % Lymph % (Auto) 12.3 L (18.3-44.2) % Craven % (Auto) 5.9 (2.6-8.5) % Eos % (Auto) 0.6 (0-4.4) % Baso % (Auto) 0.4 (0.2-1.2) % Lymph # (Auto) 0.63 L (0.9-3.2) K/mm3 Craven # (Auto) 0.3 (0.1-0.6) K/mm3 Eos # (Auto) 0.0 (0-0.3) K/mm3 Baso # (Auto) 0.0 (0.0-0.1) K/mm3 Abs Immat Gran (auto) 0.01 (0.00-0.031) K/mm3 Absolute Neuts (auto) 4.1 (1.3-6.7) K/mm3 Absolute Nucleated RBC 0.000 (0.0-0.012) K/mm3 Nucleated RBC % 0.0 (0.0-0.2) % Sodium 140 (137-145) mmol/L Potassium 3.9 (3.4-5.0) mmol/L Chloride 110 H (98-107) mmol/L Carbon Dioxide 23 (22-30) mmol/L Anion Gap 7 (4-12) mmol/L BUN 13 D (7-17) mg/dL Creatinine 0.75 (0.7-1.0) mg/dL Estim Creat Clear Calc Not Reportable Estimated GFR > 60 (59 - ) Glucose 115 H (65-110) mg/dL POC Capillary Glucose 111 H (65-105) mg/dl Calcium 8.9 (8.4-10.2) mg/dL Magnesium 2.4 H (1.6-2.3) mg/dL Total Bilirubin 0.7 (0.2-1.3) mg/dL AST 29 (14-36) U/L ALT 25 (6-35) U/L Alkaline Phosphatase 67 (38-126) U/L Total Protein 7.0 (6.3-8.2) g/dL Albumin 4.2 (3.5-5.1) g/dL Lipase 127 (23-300) U/L Urine Color Yellow (Yellow) Urine Appearance Cloudy H (Clear) Urine pH 8.5 (5.0-9.0) Ur Specific [place] 1.009 (1.001-1.035) Urine Protein Negative (Negative) mg/dL Urine Glucose (UA) Negative (Negative) mg/dL Urine Ketones Negative (Negative) mg/dL Ur Blood (Man) Negative (Negative) Urine Nitrate Negative (Negative) Urine Bilirubin Negative (Negative) Urine Urobilinogen 0.2 (<2.0) mg/dL Leukocyte Esterase Rfl Negative (Negative) MAKSIM/UL Urine RBC 0-2 (0-2) /hpf Urine WBC 0-5 (0-3) /hpf Ur Squamous Epith Cells None seen (Few) /hpf Urine Bacteria None seen /hpf Urine Casts 0-2 Influenza A (RT-PCR) Negative (Negative) Influenza B (RT-PCR) Negative (Negative) RSV (RT-PCR) Negative (Negative) SARS-CoV-2 RNA (RT-PCR) Negative (Negative) Discharge Plan Discharge Clinical Impression: Dehydration, Dizziness Patient Disposition: Home Condition: Stable Instructions: Antibiotic Form, Dizziness (ED) Additional Instructions: You were seen emergency department for dizziness. Your symptoms improved dramatically with IV fluids. You are likely dehydrated. Please continue to drink plenty of fluids. If you develop any new symptoms such as double vision, difficulty speaking, swelling, or weakness to extremity please return emergency department immediately. Please follow-up with your primary care physician in 3-5 days for further management. Patient Language: Samoan Prescriptions: New meclizine 25 mg tablet 25 mg PO BID PRN (Reason: dizziness) Qty: 14 0RF No Action dicyclomine 20 mg tablet 10 mg PO QID rosuvastatin 40 mg tablet 40 mg PO DAILY cetirizine 10 mg tablet 10 mg PO DAILY PRN eszopiclone 3 mg tablet PO QHS famotidine 10 mg tablet 10 mg PO DAILY lubiprostone 8 mcg capsule 8 mcg PO DAILY mirtazapine 15 mg tablet 15 mg PO DAILY alprazolam 0.25 mg tablet 0.25 mg PO DAILY cholecalciferol (vitamin D3) 50 mcg (2,000 unit) capsule 50 mcg PO DAILY fluticasone propionate [Flonase Allergy Relief] 50 mcg/actuation spray,suspension 1 - 2 spray intranasal BID Qty: 16 3RF Rx Instructions: administer into each nostril. Aim back/up/out Follow-up/Referrals: PHYSICIAN NOT ON STAFF,NONSTAFF [Primary Care Provider]
[2025-07-10 13:19] LABS: Alanine Aminotransferase 25 U/L (6-35); Albumin Level 4.2 g/dL (3.5-5.1); Alkaline Phosphatase 67 U/L (38-126); Anion Gap 7 mmol/L (4-12); Aspartate Amino Transferase 29 U/L (14-36); Bilirubin,Total 0.7 mg/dL (0.2-1.3); Blood Urea Nitrogen 13 mg/dL (7-17); Calcium 8.9 mg/dL (8.4-10.2); Carbon Dioxide 23 mmol/L (22-30); Chloride 110 mmol/L (98-107); Estimated Glomerular Filt Rate > 60; Glucose 115 mg/dL (65-110); Lipase 127 U/L (23-300); Magnesium 2.4 mg/dL (1.6-2.3); Potassium 3.9 mmol/L (3.4-5.0); Sodium 140 mmol/L (137-145); Total Protein 7.0 g/dL (6.3-8.2)
[2025-07-10 13:28] LABS: Influenza A QL RT-PCR Negative (Negative); Influenza B QL RT-PCR Negative (Negative); RSV RNA, RT-PCR Negative (Negative); SARS-CoV-2 RNA PCR Negative (Negative)
[2025-07-10] MEDS: LACTATED RINGERS 1,000 ML 999 ML IV CONT (15:20)
== END 2025-07-10 17:28 | disposition home or self-care (01) ==
PROVIDERS: Emergency Provider Emergency Medicine
DX: E86.0 Dehydration (principal); R42 Dizziness and giddiness; Z20.822 Contact with and (suspected) exposure to COVID-19; K21.9 Gastro-esophageal reflux disease without esophagitis; E78.5 Hyperlipidemia, unspecified; I10 Essential (primary) hypertension
CPT/HCPCS: 36415; 70496; 70498; 71045; 80053; 81001; 82948; 83690; 83735; 85025; 87637; 93005; 96360; 99284; J7120; Q9967